=== PATIENT | female | born 1960 | race Caucasian/White ===

== ENCOUNTER → 2020-05-07 10:08 | Outpatient (CLI) | payer BC, SELFPAY ==
--- NOTE | 2020-05-07 10:23 | RAD_ITS ---
INDICATION: LOW BACK PAIN EXAMINATION/TECHNIQUE: X-RAY - XR Spine Lumbar 2 or 3 Views COMPARISON: None. FINDINGS: VERTEBRAE: Preserved vertebral body height. No fracture. No spondylolisthesis. Preservation of the normal lumbar lordosis. Mild dextroscoliosis centered at L3. Mild disc space narrowing and osteophyte formation consistent with mild degenerative disc disease. Lumbarization of the S1 segment. DISCS: Mild disc space narrowing INCLUDED ABDOMEN: Status post cholecystectomy. RAD/Lumbar Spine 2 or 3 Views IMPRESSION: Mild dextro scoliosis with mild diffuse degenerative disc disease. Electronically Signed: Ronald Reyna MD at 11:31 EDT Tel , Service support ,
== END ==
PROVIDERS: PCP Nurse Practitioner Family; Referring Provider Nurse Practitioner Family; Visit Provider Nurse Practitioner Family
DX: M54.5 Low back pain (principal)
CPT/HCPCS: 72100

== ENCOUNTER → 2020-07-12 08:13 | Outpatient (CLI) | payer BC, SELFPAY ==
--- NOTE | 2020-07-12 08:15 | BI_ITS ---
MAMMOGRAPHY - BILATERAL SCREENING REASON FOR EXAM: Female, 60 years old. Routine annual screening examination. PERTINENT HISTORY: Non-contributory. Remote left stereotactic breast biopsy. TECHNIQUE: Digital bilateral breast monse (3D mammographic acquisition) in the CC and MLO projections. 2-D mediolateral oblique (MLO) and craniocaudad (CC) views of both breasts were obtained. CAD: Full Field Digital Mammography with Computer Added Detection was performed. COMPARISON: Comparison is made with prior outside examination dated 01/27/2019. FINDINGS: Breast Composition: The breasts are heterogeneously dense, which may obscure small masses. There are no dominant masses or suspicious calcifications. No other significant abnormalities are identified. There has been no significant change since the prior study. BI/SCRN MAMM (CAD)W/MONSE BILAT IMPRESSION: Stable bilateral screening mammogram. Yearly follow-up mammogram recommended. (A) ASSESSMENT CATEGORY: BIRADS Category 1: Negative. A letter regarding these results will be sent to the patient by the facility within 30 days. Approximately 10% of breast cancers are not detected by mammography. A normal mammogram should not delay biopsy of a clinically suspicious abnormality. [id number] Electronically Signed: Abran Callahan MD at 9:43 EDT , Service support ,
== END ==
PROVIDERS: PCP Family Medicine; Referring Provider Nurse Practitioner Family; Visit Provider Nurse Practitioner Family
DX: Z12.31 Encounter for screening mammogram for malignant neoplasm of breast (principal)
CPT/HCPCS: 77063; 77067

== ENCOUNTER → 2021-10-06 | Outpatient (CLI) | payer BC, SELFPAY ==
--- NOTE | 2021-10-06 07:55 | BI_ITS ---
MAMMOGRAPHY - BILATERAL SCREENING REASON FOR EXAM: Female, 61 years old. Routine annual screening examination. PERTINENT HISTORY: Non-contributory. Remote left stereotactic breast biopsy. TECHNIQUE: Digital bilateral breast monse (3D mammographic acquisition) in the CC and MLO projections. 2-D mediolateral oblique (MLO) and craniocaudad (CC) views of both breasts were obtained. CAD: Full Field Digital Mammography with Computer Added Detection was performed. COMPARISON: Comparison is made with prior study dated 07/12/2020 and 09/17/2015. FINDINGS: Breast Composition: The breasts are heterogeneously dense, which may obscure small masses. There are no dominant masses or suspicious calcifications. A tissue clip marker is seen in the upper slightly lateral aspect of the left breast. No other significant abnormalities are identified. There has been no significant change since the prior study. BI/SCRN MAMM (CAD)W/MONSE BILAT IMPRESSION: Stable bilateral screening mammogram. Yearly follow-up mammogram recommended. (A) ASSESSMENT CATEGORY: BIRADS Category 2: Benign. A letter regarding these results will be sent to the patient by the facility within 30 days. Approximately 10% of breast cancers are not detected by mammography. A normal mammogram should not delay biopsy of a clinically suspicious abnormality. [id number] Electronically Signed: Abran Callahan MD at 9:39 EDT ,
== END | disposition home or self-care (01) ==
LOC: OPBI 07:53
PROVIDERS: PCP Nurse Practitioner Family; Visit Provider Nurse Practitioner Family
DX: Z12.31 Encounter for screening mammogram for malignant neoplasm of breast (principal)
CPT/HCPCS: 77063; 77067

== ENCOUNTER → 2022-03-15 | Outpatient (CLI) | payer BC, SELFPAY ==
--- NOTE | 2022-03-15 09:45 | STEWCON_ITS ---
Reason For Study: CHEST PAIN Stress Results Protocol: Kush Protocol WITH DEFINITY Maximum Predicted HR: 158 bpm Target HR: 134 bpm % Maximum Predicted HR: 99 % DurationHeart Rate Stage (mm:ss) (bpm) BP Comment BASELINE 73 142/863 CC DEFINITY FOR ENTIRE TEST STAGE 1 3:00 109 158/74 STAGE 2 3:00 131 170/62 STAGE 3 3:00 157 182/80 RECOVERY 93 142/78 Stress Duration: 9:00 mm:ss Maximum Stress HR: 157 bpm METS: 10 Baseline Echocardiogram Findings Stress Echo Wall motion Data Resting WM Intermediate WM Stress WM Resting Wall Motion Wall Motion Stress All segments Normal. All segments Hyperkinetic. Ejection Fraction 55 %. Ejection Fraction 75 %. Stress Results Heart rate response: Technically adequate: Percent predicted maximal heart rate greater than 85% Blood pressure response: Resting hypertension-appropriate response Rhythm: Rare PVC during exercise Functional capacity: Good Stopped secondary to dyspnea. EKG Data Baseline ECG: Normal sinus rhythm; poor R wave progression. Peak exercise ECG: No obvious ECG changes. Symptoms with Stress No complaint of chest discomfort during exercise or recovery. Doppler Measurements & Calculations TR max osito: 218.6 cm/sec TR max P.1 mmHg ECHO/Stress Test Echo W/Contrast Interpretation Summary 1. Contrast injection performed 2. Negative (technically adequate: Percent predicted maximal heart rate greater than 85%) stress echocardiogram 3. Negative (technically adequate: Percent predicted maximal heart rate greater than 85%) stress ECG Ordering Physician: Radha De La Cruz Performed By: Darcie Harper, DALE, RVT
== END | disposition home or self-care (01) ==
PROVIDERS: PCP Nurse Practitioner Family; Visit Provider Nurse Practitioner Family
DX: R07.89 Other chest pain (principal); M79.621 Pain in right upper arm; M79.622 Pain in left upper arm; R29.898 Other symptoms and signs involving the musculoskeletal system; Z82.49 Family history of ischemic heart disease and other diseases of the circulatory system
CPT/HCPCS: 93017; 93350; Q9957; A4216; C8928

== ENCOUNTER → 2022-08-10 | Outpatient (CLI) | payer OTHER, SELFPAY | END | disposition home or self-care (01) | LOC: LABSPEC 15:54 | PROVIDERS: PCP Nurse Practitioner Family; Referring Provider Physician Assistant Surgical; Visit Provider Physician Assistant Surgical | DX: R35.0 Frequency of micturition (principal) | CPT/HCPCS: 87086 ==

== ENCOUNTER → 2023-06-08 | Outpatient (CLI) | payer OTHER, SELFPAY ==
[2023-06-08 12:15] LABS: Absolute Lymphocyte Count 1.85 X10^3/uL (0.83-4.51); Absolute Neutrophil Count 5.1 X10^3/uL (2.0-7.7); Basophil# 0.04 X10^3/uL; Basophil% 0.5 % (0-1); Eosinophil# 0.37 X10^3/uL; Eosinophils% 4.7 % (0-5); Hematocrit 45.1 % (37-47); Hemoglobin 14.4 g/dL (12.0-15.0); Lymphocyte # 1.85 X10^3/ul (0.83-4.51); Lymphocyte % 23.4 % (19-41); Mean Corp Hgb Conc 31.9 g/dL (32-36); Mean Corpuscular Hgb 30.6 pg (27.0-32.0); Mean Platelet Vol. 10.6 fl (6.2-12.0); Monocyte# 0.56 X10^3/uL; Monocyte% 7.1 % (0-10); NRBC Flagged by Analyzer 0 % (0-5); Neutrophil # 5.07 X10^3/uL (2.7-7.7); Platelet Count 363 K/mm3 (150-450); RBC Distribution Width CV 13.1 % (11.6-14.6); RBC Distribution Width SD 46.7 fl (35.1-43.9); White Blood Count 7.9 K/mm3 (4.4-11.0)
[2023-06-08 12:30] LABS: ALB/GLOB Ratio 0.8 RATIO (0.9-2.4); AST(SGOT) 45 U/L (15-37); Alanine Aminotransfer ALT/SGPT 75 U/L (13-56); Albumin, Serum 3.5 g/dL (3.2-5.0); Alkaline Phosphatase 125 U/L (45-117); Anion Gap 4 (5-15); BUN 10 mg/dL (7-18); BUN/Creat Ratio 13.9 RATIO (10-20); Calcium,Total 9.3 mg/dL (8.5-10.1); Chloride 107 mmol/L (98-107); Cholesterol 221 mg/dL (200); Creatinine, Serum 0.72 mg/dL (0.55-1.02); EST Glomerular Filtration Rate 87 mL/min (>60); Est Glom Filt Rate - Afr Amer 105 mL/min (>60); Globulin 4.5 g/dL (2.2-4.2); Glucose 106 mg/dL (74-106); High Density Lipoprotein 78 mg/dL; Potassium 4.4 mmol/L (3.5-5.1); Sodium Level 139 mmol/L (136-145); Triglycerides 91 mg/dL; Very Low Density Lipoprotein 18 mg/dL (5-40)
== END | disposition home or self-care (01) ==
LOC: BIMLAB 10:39
PROVIDERS: PCP Internal Medicine; Referring Provider Internal Medicine; Visit Provider Internal Medicine
DX: Z00.00 Encounter for general adult medical examination without abnormal findings (principal)
CPT/HCPCS: 36415; 80053; 80061; 85025

== ENCOUNTER → 2023-07-12 | Outpatient (CLI) | payer OTHER, SELFPAY ==
--- NOTE | 2023-07-12 09:58 | BI_ITS ---
MAMMOGRAPHY - BILATERAL SCREENING 3-D TOMOSYNTHESIS REASON FOR EXAM: Female, 63 years old. Breast cancer screening PERTINENT HISTORY: No significant family history. TECHNIQUE: 2-D mammograms and 3-D Tomosynthesis of the breast (s) were performed. CAD was performed. COMPARISON: 10/06/2021 FINDINGS: The breast composition is heterogeneously dense that can obscure small breast masses. Scattered benign calcifications are seen. No dense spiculated masses or suspicious microcalcifications are identified. No architectural distortion is identified. There is no skin thickening or retraction. There has been no significant change since the prior study. BI/SCRN MAMM (CAD)W/MONSE BILAT IMPRESSION: No mammographic signs of malignancy. Routine yearly mammograms recommended. ASSESSMENT CATEGORY: BIRADS Category 1: Negative. A letter regarding these results will be sent to the patient by the facility within 30 days. FOLLOW UP RECOMMENDATION: Yearly follow up mammogram recommended. (A) Approximately 10% of breast cancers are not detected by mammography. A normal mammogram should not delay biopsy of a clinically suspicious abnormality. Electronically Signed: Ronald Reyna MD at 17:22 EDT ,
--- NOTE | 2023-07-12 10:05 | BD_ITS ---
STUDY: DUAL ENERGY X-RAY ABSORPTIOMETRY / DXA REASON FOR EXAM: Female, 63 years old. Post Menopausal TECHNIQUE: Bone Mineral Density (BMD) measurements of lumbar spine and bilateral hips were obtained. COMPARISON: None. FINDINGS: Lumbar Spine (L1-L4): g/cm2 (0.962) / T-score (-1.3) / Z-score (0.5) Findings are suggestive of osteopenia with a low fracture risk. Left Femur Total: g/cm2 (0.995) / T-score (0.4) / Z-score (1.6) Left Femoral Neck: g/cm2 (0.719) / T-score (-1.2) / Z-score (0.3) Right Femur Total: g/cm2 (0.965) / T-score (0.2) / Z-score (1.4) Right Femoral Neck: g/cm2 (0.656) / T-score (-1.7) / Z-score (-0.3) BD/Dexa Bone Density Study IMPRESSION: The patient is considered osteopenic as outlined below according to World Shaw Organization (WHO) criteria with a moderate fracture risk. Reference Information: The T-score is the number of standard deviations above or below the standard which is normal for young adults at their peak bone mineral density. The World Health Organization (WHO) interprets the T-scores as follows: Above -1 Normal bone density Between -1 and -2.5 Osteopenia Equal to / or below -2.5 Osteoporosis As a practical clinical guideline, osteopenia may be graded as follows: Mild -1 through -1.5 Moderate -1.6 through -2.0 Severe -2.1 through -2.4 The Z-score is the number of standard deviations above or below age-matched controls. A Z-score of less than -1.5 would be considered abnormal. References: 1. NIH Osteoporosis and Related Bone Diseases www osteo.org 2. International Society for Clinical Densitometry www iscd.org 3. National Osteoporosis Foundation www nof.org Electronically Signed: Abran Callahan MD at 11:13 EDT ,
== END | disposition home or self-care (01) ==
LOC: OPBD 09:56
PROVIDERS: PCP Internal Medicine; Referring Provider Internal Medicine; Visit Provider Internal Medicine
DX: Z12.31 Encounter for screening mammogram for malignant neoplasm of breast (principal); Z78.0 Asymptomatic menopausal state
CPT/HCPCS: 77063; 77067; 77080

== ENCOUNTER → 2023-10-08 | Outpatient (CLI) | payer OTHER, SELFPAY ==
[2023-10-16 16:10] LABS: HPV APTIMA, High Risk Negative (Negative)
== END | disposition home or self-care (01) ==
LOC: LABSPEC 11:53
PROVIDERS: PCP Internal Medicine; Referring Provider Nurse Practitioner Family; Visit Provider Nurse Practitioner Family
DX: Z12.4 Encounter for screening for malignant neoplasm of cervix (principal)
CPT/HCPCS: 87624; 88175; G0145

== ENCOUNTER → 2024-03-27 | Outpatient (CLI) | payer OTHER, SELFPAY | END | disposition home or self-care (01) | LOC: LABSPEC 10:03 | PROVIDERS: PCP Internal Medicine; Visit Provider Internal Medicine | DX: R82.90 Unspecified abnormal findings in urine (principal) | CPT/HCPCS: 87086; 87088; 87186 ==

== ENCOUNTER → 2024-07-03 | Outpatient (CLI) | payer MEDICARE, OTHER, SELFPAY ==
[2024-07-03 17:07] LABS: Absolute Lymphocyte Count 2.12 X10^3/uL (0.83-4.51); Absolute Neutrophil Count 5.2 X10^3/uL (2.0-7.7); Basophil# 0.07 X10^3/uL; Basophil% 0.8 % (0-1); Eosinophil# 0.33 X10^3/uL; Hematocrit 41.3 % (37-47); Hemoglobin 13.6 g/dL (12.0-15.0); Lymphocyte # 2.12 X10^3/ul (0.83-4.51); Lymphocyte % 25.5 % (19-41); Mean Corp Hgb Conc 32.9 g/dL (32-36); Mean Corpuscular Hgb 31.2 pg (27.0-32.0); Mean Corpuscular Volume 94.7 fL (81-99); Mean Platelet Vol. 10.8 fl (6.2-12.0); Monocyte# 0.59 X10^3/uL; Monocyte% 7.1 % (0-10); NRBC Flagged by Analyzer 0 % (0-5); Neutrophil % 62.4 % (47-70); Platelet Count 359 K/mm3 (150-450); RBC Distribution Width CV 12.9 % (11.6-14.6); RBC Distribution Width SD 44.7 fl (35.1-43.9); Red Blood Count 4.36 M/mm3 (4.2-5.4); White Blood Count 8.3 K/mm3 (4.4-11.0)
[2024-07-03 17:16] LABS: ALB/GLOB Ratio 1.3 RATIO (0.9-2.4); AST(SGOT) 43 U/L (<=31); Alanine Aminotransfer ALT/SGPT 54 U/L (<=34); Albumin, Serum 4.2 g/dL (3.4-4.8); Alkaline Phosphatase 111 U/L (35-104); Anion Gap 11 (5-15); BUN 11 mg/dL (4-19); BUN/Creat Ratio 16.8 RATIO (10-20); Carbon Dioxide 24.3 mmol/L (21.0-32.0); Chloride 102 mmol/L (98-108); Cholesterol 199 mg/dL (<=200); Creatinine, Serum 0.68 mg/dL (0.70-1.20); EST Glomerular Filtration Rate 97 (>60); Globulin 3.2 g/dL (2.2-4.2); Glucose 101 mg/dL (70-99); High Density Lipoprotein 67 mg/dL; Low Density Lipoprotein Calc. 109 mg/dL; Potassium 4.2 mmol/L (3.3-5.1); Protein, Total 7.5 g/dL (5.9-8.4); Sodium Level 138 mmol/L (133-145); Total Bilirubin 0.45 mg/dL (0.00-1.30); Triglycerides 115 mg/dL; Very Low Density Lipoprotein 23 mg/dL (5-40); cholesterol:hdl ratio screen 2.97
== END | disposition home or self-care (01) ==
LOC: BIMLAB 15:12
PROVIDERS: PCP Internal Medicine; Referring Provider Internal Medicine; Visit Provider Internal Medicine
DX: Z00.00 Encounter for general adult medical examination without abnormal findings (principal)
CPT/HCPCS: 36415; 80053; 80061; 85025

== ENCOUNTER → 2024-07-22 | Outpatient (CLI) | payer MEDICARE, OTHER, SELFPAY ==
--- NOTE | 2024-07-22 07:17 | US_ITS ---
PROCEDURE: ABD LIMITED W/ ELASTOGRAPHY REASON FOR EXAM: ELEVATED LIVER ENZYMES COMPARISON: None. TECHNIQUE: Right upper quadrant abdominal ultrasound along with shear wave elastography for non-invasive assessment of liver tissue stiffness. FINDINGS: LIVER: SIZE: Unremarkable LENGTH: 18.4 cm sagittally. ECHOTEXTURE: Normal. CONTOUR: Normal LESIONS: None identified BLOOD FLOW: Hepatopetal. ELASTOGRAPHY: EQI Med: 8.1 kPa EQI Med Rik: 1.63 m/s GALLBLADDER: Surgically absent. COMMON BILE DUCT: 1.1 cm. . PANCREAS: Normal RIGHT KIDNEY: Size measures 11.1 x 5.4 x 4.5 cm. Cortex measures 1.5 cm. US/ABD Limited w/ Elastography IMPRESSION: 1. F 2 to F 3, moderate to severe clinical likelihood of significant hepatic f ibrosis. 2. Status post cholecystectomy. Reference Values: SRU <1.37 m/s (5.7kPa): No to mild fibrosis 1.37 m/s - 2.2 m/s: Moderate to severe fibrosis >2.2 m/s (15kPa): Significant fibrosis / cirrhosis METAVIR Score F2 or higher: 1.34 m/s (5.7kPa) F3 or higher: 1.55 m/s (7.3kPa) F4: 1.80 m/s (10kPa) Reading Location: [place] [id number]
--- OUTSIDE RECORDS SUMMARY | 2024-07-22 07:33 | XMS RPT_ITS | CCD ---
Author Organization [facility] Care Team Providers Care Director Of Institutional Research Name Role Phone Jose Cruz Tabatha Sena Primary Care Provider Jono PARTS CHASER, PARTS CHASER-C Radha Primary Care Provider [phone] Dr. Andrew Trammell Attending Provider Jono PARTS CHASER, PARTS CHASER-C Radha Primary Care Provider [phone] Jono PARTS CHASER, PARTS CHASER-C Radha Referring Provider PEGGY Stevens Attending Provider Jono PARTS CHASER, PARTS CHASER-C Radha Primary Care Provider [phone] Jono PARTS CHASER, PARTS CHASER-C Radha Referring Provider Dr. Matthew Solorio Attending Provider [phone] Osmin KENT, Dr. Castro Primary Care Provider Dr. Matthew Solorio MD Referring Provider Yury Stevens Attending Provider [phone] Osmin KENT, Dr. Castro Attending Provider Kim Pemberton Referring Unavailable Oleghe, Efewongbe Primary Care Unavailable Kim Pemberton Attending Unavailable Oleghe, Efewongbe Attending Unavailable Oleghe, Efewongbe Primary Care Unavailable Oleghe, Efewongbe Attending Unavailable Oleghe, Efewongbe Referring Unavailable Oleghe, Efewongbe Primary Care Unavailable Oleghe, Efewongbe Attending Unavailable Oleghe, Efewongbe Referring Unavailable Oleghe, Efewongbe Primary Care Unavailable Oleghe, Efewongbe Attending Unavailable Oleghe, Efewongbe Primary Care Unavailable Oleghe, Efewongbe Referring Unavailable Kim Pemberton Attending Unavailable Oleghe, Efewongbe Referring Unavailable Oleghe, Efewongbe Primary Care Unavailable Oleghe, Efewongbe Referring Unavailable Oleghe, Efewongbe Primary Care Unavailable Yury Stevens Attending Unavailable Oleghe, Efewongbe Attending Unavailable Oleghe, Efewongbe Referring Unavailable Oleghe, Efewongbe Primary Care Unavailable Allergies Allergy Classification Reported Allergen(s) Allergy Type Date of Onset Reaction(s) Facility (1 source) Amoxicillin Drug Allergy 6 [facility] (1 source) Erythromycin Drug Allergy 6 [facility] (8 sources) Penicillins; Translations: [Penicillins] Propensity to adverse reactions [address] [facility] Medications Current Medications Medication Drug Class(es) Dates Sig (Normalized) Sig (Original) Calcium Amino Acid Chelate 200 mg calcium tablet (2 sources) Start: 07-03-2024 Calcium Amino Acid Chelate 200 mg calcium tablet Active mg PO July 03, 2024 12:00am cholecalciferol 0.05 mg oral capsule (3 sources) Vitamin D Start: 06-08-2023 take 1 capsule by mouth once daily Cholecalciferol (Vitamin D3) 50 mcg (2,000 unit) capsule Active 50 ug PO DAILY June 08, 2023 12:00am Cranberry Fruit (3 sources) Non-Standardized Food Allergenic Extract, Non-Standardized Plant Allergenic Extract Start: 06-08-2023 take 1 capsule by mouth once daily Cranberry Fruit 400 mg capsule Active 400 mg PO DAILY June 08, 2023 12:00am administer with a meal Start: 06-08-2023 take 400 mg by mouth once kathia y Cranberry Active 400 MG PO DAILY June 08, 2023 12:00am administer with a meal Completed/Discontinued Medications Medication Drug Class(es) Dates Sig (Normalized) Sig (Original) mecobalamin 1 mg chewable tablet (3 sources) Start: 06-08-2023 End: 07-03-2024 take 1 tablet by mouth once daily Mecobalamin (Vitamin B12) 1,000 mcg tablet,chewable Discontinued 1000 ug PO DAILY June 08, 2023 12:00am July 03, 2024 2:34pm nitrofurantoin, macrocrystals 25 mg / nitrofurantoin, monohydrate 75 mg oral capsule (8 sources) Nitrofuran Antibacterial Start: 03-27-2024 End: 04-03-2024 take 1 capsule by mouth every twelve hours at mealtime Nitrofurantoin Monohyd/M-Cryst 100 mg capsule Discontinued 1 NMA PO Q12H 14 7 March 27, 2024 1:00am April 02, 2024 1:00am April 03, 2024 1:11am administer with a meal/food; swallow whole; do not open, crush, dissolve , or chew Start: 07-07-2023 End: 07-12-2023 take 1 capsule by mouth every twelve hours at mealtime Nitrofurantoin Monohyd/M-Cryst (Macrobid) 100 mg capsule Discontinued 100 mg PO Q12H 10 5 July 07, 2023 12:00am July 11, 2023 12:00am July 12, 2023 12:05am must administer with a meal/food Start: 08-10-2022 End: 08-17-2022 take 1 capsule by mouth every twelve hours at mealtime Nitrofurantoin Monohyd/M-Cryst 100 mg capsule Discontinued 1 NMA PO Q12H 14 7 August 10, 2022 12:00am August 16, 2022 12:00am August 17, 2022 12:11am administer with a meal/food; swallow whole; do not open, crush, dissolve , or chew Problems Active Problems Problem Classification Problem Date Documented Date Episodic/Chronic Administrative/social admission (4 sources) Patient encounter status; Translations: [Persons encountering health services in other specified circumstances] 06-08-2023 Episodic Other liver diseases (3 sources) Elevated liver enzymes level; Translations: [Abnormal levels of other serum enzymes] 06-08-2023 Episodic Other liver diseases (1 source) Abnormal levels of other serum enzymes; Translations: [Abnormal levels of other serum enzymes] Onset: 07-17-2024 Episodic Other skin disorders (6 sources) Nail deformity; Translations: [Other nail disorders] 08-06-2020 Episodic Unclassified (2 sources) For resuscitation 07-03-2024 Past or Other Problems Problem Classification Problem Date Documented Da te Episodic/Chronic Genitourinary symptoms and ill-defined conditions (2 sources) Unspecified abnormal findings in urine; Translations: [Dysuria] Onset: 03-27-2024 Episodic Other screening for suspected conditions (not mental disorders or infectious disease) (6 sources) Mammography abnormal; Translations: [Patient encounter status] Onset: 06-21-2005 06-21-2005 Episodic Urinary tract infections (4 sources) Urinary tract infection, site not specified; Translations: [Urinary tract infection, site not specified] Onset: 03-27-2024 08-10-2022 Episodic Results Test Name Value Interpretation Reference Range Facility Absolute lymphocyte countOrd ered By: Matthew Solorio on 07-03-2024 Lymphocytes Auto (Unsp spec) [#/Vol] 2.12 10*3/uL 0.83-4.51 [facility] Absolute neutrophil countOrd ered By: Matthew Solorio on 07-03-2024 Neutrophils (Bld) [#/Vol] 5.2 10*3/uL 2.0-7.7 [facility] Anion gap in Serum or Plasma Ordered By: Matthew Solorio on 07-03-2024 Anion gap [Moles/Vol] 11 mmol/L 07-03 [facility] Automated lymphocyte count a s percentage of total leukocytesOrdered By: antionettesagolalayla Solorio on 07-03-2024 Lymphocytes/100 WBC Auto (Unsp spec) 25.5 % - [facility] BUN/creatinine ratioOrdered By: antionettesagolalayla Solorio on 07-03-2024 Urea nitrogen/Creatinine [Mass ratio] 16.8 mg/mg 10-20 [facility] Basophil percentageOrdered B y: Matthew Solorio on 07-03-2024 Basophils/100 WBC (Bld) 0.8 % 0-1 [facility] Bilirubin, totalOrdered By: antionettesagolalayla Solorio on 07-03-2024 Bilirubin [Mass/Vol] 0.45 mg/dL 0.00-1.30 [facility] CBC W/Diff, Automatedon 06-19 Absolute Lymph 2.12 X10 3/uL Normal 0.83-4.51 [facility] Comment on above: Performed By: #### L 500.4050, L100.0100, L500.4100 #### [facility] [address] [place], [address] Absolute Neut 5.2 X10 3/uL Normal 2.0-7.7 [facility] Comment on above: Performed By: #### L 500.4050, L100.0100, L500.4100 #### [facility] [address] [place], [address] Basophils/100 WBC (Bld) 0.8 % Normal 0-1 [facility] Comment on above: Performed By: #### L 500.4050, L100.0100, L500.4100 #### [facility] [address] [place], [address] Eosinophils/100 WBC (Bld) 4.0 % Normal 0-5 [facility] Comment on above: Performed By: #### L 500.4050, L100.0100, L500.4100 #### [facility] [address] [place], [address] Erythrocyte distribution width (RBC) [Ratio] 12.9 % Normal 11.6-14.6 [facility] Comment on above: Performed By: #### L 500.4050, L100.0100, L500.4100 #### [facility] [address] [place], [address] Hematocrit (Bld) [Volume fraction] 41.3 % Normal 37-47 [facility] Comment on above: Performed By: #### L 500.4050, L100.0100, L500.4100 #### [facility] [address] [place], [address] Hemoglobin (Bld) [Mass/Vol] 13.6 g/dL Normal 12.0-15.0 [facility] Comment on above: Performed By: #### L 500.4050, L100.0100, L500.4100 #### [facility] [address] [place], [address] IG% 0.200 Normal 0.0-0.9 [facility] Comment on above: Result Comment: IG% - Immature Granulocytes (promyelocytes, myelocytes and metamyelocytes) > 1% indicates that a LEFT SHIFT is Present. Performed By: #### L 500.4050, L100.0100, L500.4100 #### [facility] [address] [place], [address] Lymphocytes/100 WBC (Bld) 25.5 % Normal 19-41 [facility] Comment on above: Performed By: #### L 500.4050, L100.0100, L500.4100 #### [facility] [address] [place], [address] MCH (RBC) [Entitic mass] 31.2 pg Normal 27.0-32.0 [facility] Comment on above: Performed By: #### L 500.4050, L100.0100, L500.4100 #### [facility] [address] [place], [address] MCHC (RBC) [Mass/Vol] 32.9 g/dL Normal 32-36 [facility] Comment on above: Performed By: #### L 500.4050, L100.0100, L500.4100 #### [facility] [address] [place], [address] MCV (RBC) [Entitic vol] 94.7 fL Normal 81-99 [facility] Comment on above: Performed By: #### L 500.4050, L100.0100, L500.4100 #### [facility] [address] [place], [address] Monocytes/100 WBC (Bld) 7.1 % Normal 0-10 [facility] Comment on above: Performed By: #### L 500.4050, L100.0100, L500.4100 #### [facility] [address] [place], [address] Neutrophils/100 WBC (Bld) 62.4 % Normal 47-70 [facility] Comment on above: Performed By: #### L 500.4050, L100.0100, L500.4100 #### [facility] [address] [place], [address] Nucleated RBC (Bld) [#/Vol] 0 10*3/uL Normal 0-5 [facility] Comment on above: Performed By: #### L 500.4050, L100.0100, L500.4100 #### [facility] [address] [place], [address] Platelet mean volume (Bld) [Entitic vol] 10.8 fL Normal 6.2-12.0 [facility] Comment on above: Performed By: #### L 500.4050, L100.0100, L500.4100 #### [facility] [address] [place], [address] Platelets (Bld) [#/Vol] 359 10*3/uL Normal 150-450 [facility] Comment on above: Performed By: #### L 500.4050, L100.0100, L500.4100 #### [facility] [address] [place], [address] RBC (Bld) [#/Vol] 4.36 10*6/uL Normal 4.2-5.4 [facility] Comment on above: Performed By: #### L 500.4050, L100.0100, L500.4100 #### [facility] [address] [place], [address] RDW SD 44.7 fl High 35.1-43.9 [facility] Comment on above: Performed By: #### L 500.4050, L100.0100, L500.4100 #### [facility] [address] [place], [address] WBC (Bld) [#/Vol] 8.3 10*3/uL Normal 4.4-11.0 [facility] Comment on above: Performed By: #### L 500.4050, L100.0100, L500.4100 #### [facility] [address] [place], [address] Calculated very low density lipoprotein (VLDL) cholesterol measurementOrdered By: Matthew Solorio on 07-03-2024 Calculated very low density lipoprotein (VLDL) cholesterol measurement 23 mg/dL 5-40 [facility] Carbon dioxide, total [Moles /volume] in Central venous bloodOrdered By: Matthew Solorio on 07-03-2024 CO2 [Moles/Vol] 24.3 mmol/L 21.0-32.0 [facility] Chloride assayOrdered By: Abby Solorio on 07-03-2024 Chloride [Moles/Vol] 102 mmol/L 98-108 [facility] Comprehensive Metabolic Prof ilon 07-03-2024 Albumin [Mass/Vol] 4.2 g/dL Normal 3.4-4.8 [facility] Comment on above: Performed By: #### L 500.4050, L100.0100, L500.4100 #### [facility] [address] [place], [address] Albumin/Globulin [Mass ratio] 1.3 {ratio} Normal 0.9-2.4 [facility] Comment on above: Performed By: #### L 500.4050, L100.0100, L500.4100 #### [facility] [address] [place], [address] ALK PHOS 111 U/L High 35-104 [facility] Comment on above: Performed By: #### L 500.4050, L100.0100, L500.4100 #### [facility] [address] [place], [address] ALT [Catalytic activity/Vol] 54 U/L High <=34 [facility] Comment on above: Performed By: #### L 500.4050, L100.0100, L500.4100 #### [facility] [address] [place], [address] AST [Catalytic activity/Vol] 43 U/L High <=31 [facility] Comment on above: Performed By: #### L 500.4050, L100.0100, L500.4100 #### [facility] [address] [place], [address] Bilirubin [Mass/Vol] 0.45 mg/dL Normal 0.00-1.30 [facility] Comment on above: Performed By: #### L 500.4050, L100.0100, L500.4100 #### [facility] [address] [place], [address] BUN/CRE 16.8 RATIO Normal 10-20 [facility] Comment on above: Performed By: #### L 500.4050, L100.0100, L500.4100 #### [facility] [address] [place], [address] Calcium [Mass/Vol] 10.0 mg/dL Normal 7.6-11.0 [facility] Comment on above: Performed By: #### L 500.4050, L100.0100, L500.4100 #### [facility] [address] [place], [address] Chloride [Moles/Vol] 102 mmol/L Normal 98-108 [facility] Comment on above: Performed By: #### L 500.4050, L100.0100, L500.4100 #### [facility] [address] [place], [address] CO2 [Moles/Vol] 24.3 mmol/L Normal 21.0-32.0 [facility] Comment on above: Performed By: #### L 500.4050, L100.0100, L500.4100 #### [facility] [address] [place], [address] Creatinine [Mass/Vol] 0.68 mg/dL Low 0.70-1.20 [facility] Comment on above: Performed By: #### L 500.4050, L100.0100, L500.4100 #### [facility] [address] [place], [address] GAP 11 Normal 5-15 [facility] Comment on above: Performed By: #### L 500.4050, L100.0100, L500.4100 #### [facility] [address] [place], [address] GFR/1.73 sq M.predicted among non-blacks MDRD (S/P/Bld) [Vol rate/Area] 97 mL/min/{1.73_m2} Normal >60 [facility] Comment on above: Result Comment: mL/m in/1.73m2 CKD-EPI Creatinine Equation (2020) Performed By: #### L 500.4050, L100.0100, L500.4100 #### [facility] [address] [place], [address] Globulin (S) [Mass/Vol] 3.2 g/dL Normal 2.2-4.2 [facility] Comment on above: Performed By: #### L 500.4050, L100.0100, L500.4100 #### [facility] [address] [place], [address] Glucose [Mass/Vol] 101 mg/dL High 70-99 [facility] Comment on above: Performed By: #### L 500.4050, L100.0100, L500.4100 #### [facility] [address] [place], [address] Potassium [Moles/Vol] 4.2 mmol/L Normal 3.3-5.1 [facility] Comment on above: Performed By: #### L 500.4050, L100.0100, L500.4100 #### [facility] [address] [place], [address] Sodium [Moles/Vol] 138 mmol/L Normal 133-145 [facility] Comment on above: Performed By: #### L 500.4050, L100.0100, L500.4100 #### [facility] [address] [place], [address] T PROT 7.5 g/dL Normal 5.9-8.4 [facility] Comment on above: Performed By: #### L 500.4050, L100.0100, L500.4100 #### [facility] [address] [place], [address] Urea nitrogen [Mass/Vol] 11 mg/dL Normal 4-19 [facility] Comment on above: Performed By: #### L 500.4050, L100.0100, L500.4100 #### [facility] [address] [place], [address] Eosinophil percentageOrdered By: Matthew Solorio on 07-03-2024 Eosinophils/100 WBC (Bld) 4.0 % 0-5 [facility] Erythrocyte distribution wid th ratioOrdered By: Matthew Solorio on 07-03-2024 Erythrocyte distribution width (RBC) [Ratio] 12.9 % 11.6-14.6 [facility] Erythrocyte distribution wid th standard deviationOrdered By: Matthew Solorio on 07-03-2024 Erythrocyte distribution width (RBC) [Ratio] 44.7 fl High 35.1-43.9 [facility] Glomerular filtration rate ( GFR) estimation/1.73 sq m using serum, plasma, or whole bOrdered By: Matthew Solorio on 07-03-2024 GFR/1.73 sq M.predicted among non-blacks MDRD (S/P/Bld) [Vol rate/Area] 97 mL/min/{1.73_m2} >60 [facility] Comment on above: mL/min/1.73m2 CKD-EP I Creatinine Equation (2020) Hematocrit Auto (Bld) [Volum e fraction]Ordered By: Matthew Solorio on 07-03-2024 Hematocrit (Bld) [Volume fraction] 41.3 % 37-47 [facility] Hemoglobin measurementOrdere d By: Matthew Solorio on 07-03-2024 Hemoglobin (Bld) [Mass/Vol] 13.6 g/dL 12.0-15.0 [facility] Immature granulocytes/100 WB C Auto (Bld)Ordered By: Matthew Solorio on 07-03-2024 Immature granulocytes/100 WBC (Bld) 0.200 % 0.0-0.9 [facility] Comment on above: IG% - Immature Granu locytes (promyelocytes, myelocytes and metamyelocytes) > 1% indicates that a LEFT SHIFT is Present. Internal Medicine Office Vis ananya 07-03-2024 Internal Medicine Office Visit [facility] [address] [place] [address] [place] [address] OFFICE VISIT Date of Service: 07/03/24 MR#: [id number] Acct: [id number] Name: AMBER CASTILLO Rep #: [id number] : 1960 Provider: Dr. Matthew zamorano MD Age/Sex: 64/F Location[place] [facility] Status: Signed Intake Vital Signs 10/08/23 09:03 07/03/24 14:38 Height 5 ft 3 in 5 ft 3 in Weight: 211 lb BMI 37.3 BP 120/80 Blood Pressure Location Lt brachial Position Sitting Respiration 16 Pulse 68 Pulse Source Monitor Temp 97.3 F L Temp Source Temporal Pulse Oximetry (%) 97 Oxygen Delivery Method room air Intake Visit Reasons: wellness Chief Complaint: Wellness/yearly Director Of Global Marketing Required: No Is patient in pain?: No Allergies Penicillins Allergy (Unknown, Verified 03/27/24 09:47) unknown Medications ???Medication ???Instructions ???Recorded ???Confirmed ???Type cholecalciferol (vitamin D3) 50 50 mcg PO DAILY 06/08/23 07/03/24 History mcg (2,000 unit) capsule cranberry fruit 400 mg capsule 400 mg PO DAILY 06/08/23 07/03/24 History calcium amino acid chelate mg PO 07/03/24 07/03/24 History Have you fallen in the past year?: No PFSH Medical History (Updated 07/03/24 @ 16:[address] Matthew Solorio MD) Encounter for wellness examination Advance directive indicates patient wish for full code resuscitation status Elevated liver enzymes Encounter to establish care Colon cancer screening Preventative health care Pancreatitis Gallstones Breast lump Urinary tract infection Arthritis Anemia Surgical History H/O breast biopsy Hx of cholecystectomy Family History Mother Angina at rest Diabetes Heart disease Hypertension High cholesterol Father Arthritis Melanoma Mental disorder Sister Arthritis Diabetes Heart disease Hypertension High cholesterol Social History (Updated 07/03/24 @ 14:37 by Keiko Dai MA) adopted: No household members: spouse and children housing: house number of children: 2 current occupational status: retired pets and animals: No sexually active: Yes Smoking Status: Never smoker alcohol intake: current alcohol intake frequency: 0-2 drinks per day Alcohol type: beer and wine details: 2-3 daily substance use type: does not use caffeine: Yes (24oz) Type: carbonated beverages what type of physical activity do you participate in: walking frequency: 3-4 times per week seatbelt use: always do you feel safe at home: Yes additional social history: - [employer] Female Reproductive History Menstrual Date of menopause: 02/19/07 HPI HPI Chief Complaint: Wellness/yearly Details: AMBER CASTILLO, is a 64 F who presents to the office today for wellness/yearly. No acute concerns at this time. No significant changes since her last visit. Since her visit, she states that she has been doing yoga at least 3 times a week. Tries to stay active. Did have a colonoscopy, mammogram and Pap smear. Was also seen by dermatology. No concerns with sleep reported. Feels well. No significant family history changes since her last visit. ROS Const Constitutional: No body ache, chills, excessive sweating, fatigue, fever(s), frequent falls, headache(s), snoring, weakness, sleep problems or change in appetite Eyes Eyes: No blurry vision, change in vision, bulging eyes, floaters, visual disturbances, eye pain or Light sensitivity ENT ENT: No abnormal hearing, ear or mastoid pain, tinnitus, balance problems, nosebleed/epistaxis, nasal congestion, headache(s), neck pain or sore throat Resp Respiratory: No cough, excessive phlegm production, pain on inspiration, shortness of breath, snoring or wheezing Cardio Cardiology: No chest pain at rest, chest pain with exertion, excessive sweating, shortness of breath, dyspnea on exertion, lightheadedness, orthopnea or palpitations Gastro GI: No abdominal pain, change in bowel habits, constipation, cramping, diarrhea, nausea/dyspepsia or vomiting Genitourinary-Female : No burning urination, painful urination, urinary incontinence, urinary frequency, suprapubic fullness, side pain, abnormal vaginal bleeding or pelvic pain Musc Musculoskeletal: No abnormal gait, joint pain, back pain, limited range of motion, neck pain or numbness Skin Skin: No dry skin, redness, excessive hair growth, yellowing of the eye, lesions, itchy eyes, rash or wounds Neuro Neurology: No abnormal gait, abnormal hearing, behavioral changes, unsteady gait/balance, weakness, frequent falls, headache(s), memory loss, numbness or visual disturbances Psych Psychiatric: No anxiety, No behavioral (more content not included)... Normal [facility] LDL calc ser/plasOrdered By: Matthew Solorio on 07-03-2024 Cholesterol in LDL [Mass/Vol] 109 mg/dL [facility] Comment on above: Jrepmoiqvv=427-173 m g/dL & Higher Ziit=360 mg/dL or greater Laboratory - Chemistry and C hemistry - challengeOrdered By: Matthew Solorio on 07-03-2024 AST [Catalytic activity/Vol] 43 U/L High <32 [facility] Lipid Profileon 07-03-2024 CHOL:HDL 2.97 Normal [facility] Comment on above: Performed By: #### L 500.4050, L100.0100, L500.4100 #### [facility] [address] [place], [address] Cholesterol [Mass/Vol] 199 mg/dL Normal <=200 [facility] Comment on above: Result Comment: Chol esterol level, Desirable <200 mg/dL Borderline high cholesterol 200-239 mg/dL High cholesterol >=240 mg/dL Recommendations of the NCEP Adult Treatment Panel for the following risk-cutoff thresholds for the [place] population. Performed By: #### L 500.4050, L100.0100, L500.4100 #### [facility] [address] [place], [address] Cholesterol in HDL [Mass/Vol] 67 mg/dL Normal [facility] Comment on above: Result Comment: Leah onal Cholesterol Education Program (NCEP) guidelines: <40 mg/dL: Low HDL-cholesterol (major risk factor for CHD) >= 60 mg/dL: High HDL-cholesterol (negative risk factor for CHD) HDL-cholesterol is affected by a number of factors, e.g. smoking, exercise, hormones, sex and age. Performed By: #### L 500.4050, L100.0100, L500.4100 #### [facility] [address] [place], [address] Cholesterol in LDL [Mass/Vol] 109 mg/dL Normal [facility] Comment on above: Result Comment: Bord tvlrfh=868-726 mg/dL Higher Rnyk=031 mg/dL or greater Performed By: #### L 500.4050, L100.0100, L500.4100 #### [facility] [address] [place], [address] Cholesterol in VLDL [Mass/Vol] 23 mg/dL Normal 5-40 [facility] Comment on above: Performed By: #### L 500.4050, L100.0100, L500.4100 #### [facility] [address] [place], [address] Triglyceride [Mass/Vol] 115 mg/dL Normal [facility] Comment on above: Result Comment: The drugs N-Acetylcysteine and Metamizole may falsely depress this assay. Normal range: <150 mg/dL Borderline High: 150-199 mg/dL High: 200-499 mg/dL Very High: >500 mg/dL Performed By: #### L 500.4050, L100.0100, L500.4100 #### [facility] [address] [place], [place], [id number] MCV (mean corpuscular volume ) determinationOrdered By: Matthew Solorio on 07-03-2024 MCV (RBC) [Entitic vol] 94.7 fL 81-99 [facility] Mean corpuscular hemoglobin (MCH) determinationOrdered By: Matthew Solorio on 07-03-2024 MCH (RBC) [Entitic mass] 31.2 pg 27.0-32.0 [facility] Mean corpuscular hemoglobin concentration (MCHC) determinationOrdered By: Matthew Solorio on 07-03-2024 MCHC (RBC) [Mass/Vol] 32.9 g/dL 32-36 [facility] Mean platelet volume determi nationOrdered By: Matthew Solorio on 07-03-2024 Platelet mean volume (Bld) [Entitic vol] 10.8 fL 6.2-12.0 [facility] Monocyte percentageOrdered B y: Matthew Solorio on 07-03-2024 Monocytes/100 WBC (Bld) 7.1 % 0-10 [facility] Neutrophil percentageOrdered By: Efcatherine Bondse on 07-03-2024 Neutrophils/100 WBC (Bld) 62.4 % 47-70 [facility] Nucleated red blood cell per centageOrdered By: Matthew Solorio on 07-03-2024 Nucleated RBC/100 WBC (Bld) [Ratio] 0 % 0-5 [facility] Platelet countOrdered By: Abby Solorio on 07-03-2024 Platelets (Bld) [#/Vol] 359 10*3/uL 150-450 [facility] Potassium measurement (mass/ volume)Ordered By: Matthew Solorio on 07-03-2024 Potassium (Unsp spec) [Mass/Vol] 4.2 mmol/L 3.3-5.1 [facility] RBC Auto (Bld) [#/Vol]Ordere d By: Matthew Solorio on 07-03-2024 RBC (Bld) [#/Vol] 4.36 10*6/uL 4.2-5.4 [facility] Screening total cholesterol/ high density lipoprotein (HDL) cholesterol ratioOrdered By: Matthew Solorio on 07-03-2024 Cholesterol.total/Choles terol in HDL [Mass ratio] 2.97 {ratio} [facility] Serum creatinine measurement (mass/volume)Ordered By: Matthew Solorio on 07-03-2024 Creatinine [Mass/Vol] 0.68 mg/dL Low 0.70-1.20 [facility] Serum globulin measurementOr dered By: Matthew Solorio on 07-03-2024 Globulin (S) [Mass/Vol] 3.2 g/dL 2.2-4.2 [facility] Serum glucose measurement (m ass/volume)Ordered By: Matthew Solorio on 07-03-2024 Glucose [Mass/Vol] 101 mg/dL High 70-99 [facility] Serum or plasma alanine cummings otransferase (ALT) measurementOrdered By: Matthew Solorio on 07-03-2024 ALT [Catalytic activity/Vol] 54 U/L High <35 [facility] Serum or plasma albumin samantha urement (mass/volume)Ordered By: Matthew Solorio on 07-03-2024 Albumin [Mass/Vol] 4.2 g/dL 3.4-4.8 [facility] Serum or plasma albumin/glob ulin mass ratioOrdered By: Matthew Solorio on 07-03-2024 Albumin/Globulin [Mass ratio] 1.3 {ratio} 0.9-2.4 [facility] Serum or plasma alkaline barbra sphatase measurementOrdered By: Matthew Solorio on 07-03-2024 ALP [Catalytic activity/Vol] 111 U/L High 35-104 [facility] Serum or plasma calcium samantha urement (mass/volume)Ordered By: Matthew Solorio on 07-03-2024 Calcium [Mass/Vol] 10.0 mg/dL 7.6-11.0 [facility] Serum or plasma cholesterol in HDL measurement (mass/volume)Ordered By: Matthew Solorio on 07-03-2024 Cholesterol in HDL [Mass/Vol] 67 mg/dL >40 [facility] Comment on above: National Cholesterol Education Program (NCEP) guidelines:<40 mg/dL: Low HDL-cholesterol (major risk factor for CHD)>= 60 mg/dL: High HDL-cholesterol (negative risk factor for CHD)HDL-cholesterol is affected by a number of factors, e.g. smoking, exercise, hormones, sex and age. Serum or plasma cholesterol measurement (mass/volume)Ordered By: Matthew Solorio on 07-03-2024 Cholesterol [Mass/Vol] 199 mg/dL <201 [facility] Comment on above: Cholesterol level, D esirable <200 mg/dLBorderline high cholesterol 200-239 mg/dLHigh cholesterol >=240 mg/dLRecommendations of the NCEP Adult Treatment Panel for the following risk-cutoff thresholds for the [place] population. Serum or plasma urea nitroge n measurement (mass/volume)Ordered By: Matthew Solorio 07-03-2024 Urea nitrogen [Mass/Vol] 11 mg/dL 4-19 [facility] Sodium levelOrdered By: Javy Solorio 07-03-2024 Sodium [Moles/Vol] 138 mmol/L 133-145 [facility] Total proteinOrdered By: Daniel Solorio on 07-03-2024 Protein [Mass/Vol] 7.5 g/dL 5.9-8.4 [facility] Triglycerides measurementOrd ered By: Matthew Solorio 07-03-2024 Triglyceride [Mass/Vol] 115 mg/dL <199 [facility] Comment on above: The drugs N-Acetylcy steine and Metamizole may falsely depress this assay. Normal range: <150 mg/dLBorderline High: 150-199 mg/dLHigh: 200-499 mg/dLVery High: >500 mg/dL White blood cell (WBC) count Ordered By: Matthew Solorio on 07-03-2024 WBC (Bld) [#/Vol] 8.3 10*3/uL 4.4-11.0 [facility] Urine Cultureon 03-29-2024 [facility]RC Presumptive E. coli [place] Count >100,000 Presumptive E. coli: REACTION Ampicillin Islt CANDELARIA 8 Ampicillin+Sulbac Islt CANDELARIA <=2 S Cefepime Islt CANDELARIA <=0.12 S cefTRIAXone Islt CANDELARIA <=0.25 S Ciprofloxacin Islt CANDELARIA <=0.06 S B-Lactamase Extended Susc Islt NEG Gentamicin Islt CANDELARIA <=1 S levoFLOXacin Islt CANDELARIA <=0.12 S Meropenem Islt CANDELARIA <=0.25 S Nitrofurantoin Islt CANDELARIA <=16 S Pip+Tazo Islt CANDELARIA <=4 S TMP SMX Islt CANDELARIA <=20 S Normal [facility] Comment on above: Performed By: #### M 100.8468 #### [facility] [address], [place], [id number] Laboratory - Chemistry and C hemistry - challengeOrdered By: Yury Rojas on 03-27-2024 Bilirubin Ql (U) Negative [facility] Glucose Ql (U) Negative [facility] Ketones Ql (U) Negative [facility] pH (U) 7.5 [pH] [facility] Specific gravity (U) [Rel density] 1.020 [facility] Urobilinogen (U) [Mass/Vol] Negative [facility] Laboratory - Hematology and Cell countsOrdered By: Yury Rojas on 03-27-2024 Hemoglobin Ql (U) Negative [facility] - Specimen inform ationOrdered By: Yury Rojas on 03-27-2024 Clarity (U) Cloudy [facility] Color (U) Yellow [facility] Laboratory - UrinalysisOrder ed By: Yury Rojas on 03-27-2024 Nitrite Ql (U) Positive [facility] Protein Ql (U) 2+ [facility] No Panel InformationOrdered By: Yury Rojas on 03-27-2024 Urine Leukocytes Positive [facility] Urine Non-Hemolyzed Blood Large [facility] Urgent Care Visit Reporton 0 03-27-2024 Urgent Care Visit Report [facility] [address], [address] [place] [address] OFFICE VISIT Date of Service: 03/27/24 MR#: [id number] Acct: [id number] Name: AMBER CASTILLO Rep #: [id number] : 1960 Provider: PEGGY Brownlee Age/Sex: 63/F Location[facility] Status: Signed Intake Vital Signs 10/08/23 09:03 03/27/24 09:46 Height 5 ft 3 in BP 124/60 H Blood Pressure Location Lt brachial Position Sitting Respiration 16 Pulse 77 Pulse Source NIBP Temp 97.9 F Temp Source Oral Pulse Oximetry (%) 98 Oxygen Delivery Method room air Intake Visit Reasons: Urinary tract infection Chief Complaint: dysuria, urgency, low back pain Director Of Global Marketing Required: No Is patient in pain?: No Allergies Penicillins Allergy (Unknown, Verified 03/27/24 09:47) unknown Is last menstrual period known: No Post menopausal: Yes Patient : No Have you fallen in the past year?: No Nurse's Note: dysuria, urgency, low back pain x 24 hours. denies abd pain, fevers. concern for UTI PFSH Medical History Elevated liver enzymes Encounter to establish care Colon cancer screening Preventative health care Pancreatitis Gallstones Breast lump Urinary tract infection Arthritis Anemia Surgical History H/O breast biopsy Hx of cholecystectomy Family History Mother Angina at rest Diabetes Heart disease Hypertension High cholesterol Father Arthritis Melanoma Mental disorder Sister Arthritis Diabetes Heart disease Hypertension High cholesterol Social History (Updated 10/08/23 @ 09:00 by Shellie Jameson) household members: spouse and children housing: house current occupational status: employed 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 Patient states that started yesterday. No fever, chills, sweats. No nausea, vomiting or diarrhea. No loss of bowel or bladder control. No other associated symptoms or alleviating/aggravat ing factors. ROS Const Constitutional: No other (6 system ROS completed with pertinent findings in the HPI otherwise normal.) Exam Const General: cooperative and healthy appearing Resp Effort Inspection: normal respiratory effort Auscultation: Bilateral: Clear to Auscultation Cardio Rate: regular rate Rhythm: regular rhythm GI Auscultation: normal bowel sounds General: No CVA tenderness Psych Appearance: grossly normal Mental Status: mental status grossly normal Results POC Urinalysis Dip (Clinic) Office Urine Color Yellow Last Edit by Norma Driver on 03/27/24 09:52 Office Urine Clarity Cloudy Last Edit by Norma Driver on 03/27/24 09:52 Office Urine Glucose Negative Last Edit by Norma Driver on 03/27/24 09:52 Office Urine Ketones Negative Last Edit by Norma Driver on 03/27/24 09:52 Off Ur Spec Bryant 1.020 Last Edit by Norma Driver on 03/27/24 09:52 Office Urine pH 7.5 Last Edit by Norma Driver on 03/27/24 09:52 Office Urine Bilirubin Negative Last Edit by Norma Driver on 03/27/24 09:52 Office Urine Urobilinogen Negative Last Edit by Norma Driver on 03/27/24 09:52 Office Urine Blood Negative Last Edit by Norma Driver on 03/27/24 09:52 Office Urine Blood Hemolyzed Large Last Edit by Norma Driver on 03/27/24 09:52 Office Urine Protein 2+ Last Edit by Norma Driver on 03/27/24 09:52 Office Urine Nitrate Positive Last Edit by Norma Driver on 03/27/24 09:52 Off Ur Leukocytes Positive Last Edit by Norma Driver on 03/27/24 09:52 Coding Level of Care Code Off vis,new,level 3 Diagnoses Urinary tract infection N39.0 Assessment and Plan Assessment and Plan (1) Urinary tract infection: Plan: Macrobid as prescribed today. Encouraged to get plenty of rest, drink lots of clear liquids, and use Tylenol or Ibuprofen (unless contraindicated) for fever and comfort. Patient also educated on other symptomatic management techniques. To be seen in 7-10 days if no improvement; sooner if worsening of symptoms. Patient advised of (more content not included)... Normal [facility] Urine cultureOrdered By: Alphonso Rojas on 03-27-2024 Bacteria identified Cx Nom (U) Presumptive E. coli Abnormal [facility] PAP IG HPV APTIMA 16/18,45on 10-16-2023 ADEQ Comment Normal . [facility] Comment on above: Order Comment: Speci men Comment: [id number] Specimen Comment: Source.............Cervix Specimen Comment: Other..............Post Menopausal Specimen Comment: No. of containers..01 ThinPrep Vial Result Comment: Sati sfactory for evaluation. Endocervical and/or squamous metaplastic cells (endocervical component) are present. Performed By: #### L 7400.0280 #### [facility] [place], [address] COMM . Normal . [facility] Comment on above: Order Comment: Speci men Comment: [id number] Specimen Comment: Source.............Cervix Specimen Comment: Other..............Post Menopausal Specimen Comment: No. of containers..01 ThinPrep Vial Performed By: #### L 7400.0280 #### [facility] [address] [place], [address] COMMENT Comment Normal . [facility] Comment on above: Order Comment: Speci men Comment: [id number] Specimen Comment: Source.............Cervix Specimen Comment: Other..............Post Menopausal Specimen Comment: No. of containers..01 ThinPrep Vial Result Comment: This liquid based ThinPrep(R) pap test was screened with the use of an image guided system. Performed By: #### L 7400.0280 #### [facility] [address] [place], [place], [id number] DIAG Comment Normal . [facility] Comment on above: Order Comment: Speci men Comment: [id number] Specimen Comment: Source.............Cervix Specimen Comment: Other..............Post Menopausal Specimen Comment: No. of containers..01 ThinPrep Vial Result Comment: NEGA TIVE FOR INTRAEPITHELIAL LESION OR MALIGNANCY. REACTIVE CELLULAR CHANGES AND/OR REPAIR ARE PRESENT. Performed By: #### L 7400.0280 #### [facility] [address] [place], [address] HPV APTIMA, HR Negative Normal Negative [facility] Comment on above: Order Comment: Speci men Comment: [id number] Specimen Comment: Source.............Cervix Specimen Comment: Other..............Post Menopausal Specimen Comment: No. of containers..01 ThinPrep Vial Result Comment: This nucleic acid amplification test detects fourteen high- risk HPV types (16,18,31,33,35,39,45,51,52,56,58,59,66,68) without differentiation. Performed By: #### L 7400.0280 #### [facility] [address] [place], [address] HPV Ariam Rfx Comment Normal . [facility] Comment on above: Order Comment: Speci men Comment: [id number] Specimen Comment: Source.............Cervix Specimen Comment: Other..............Post Menopausal Specimen Comment: No. of containers..01 ThinPrep Vial Result Comment: Crit desi not met, HPV Genotype not performed. Performed at: - [facility] [id number] Medical Practice Assistant: Rochelle Means MD, Phone: [phone] Performed at: = - [facility] [id number] Medical Practice Assistant: Rochelle Means MD, Phone: [phone] Performed By: #### L 7400.0280 #### [facility] [address] [place], [address] PAPSMR Comment Normal . [facility] Comment on above: Order Comment: Speci men Comment: [id number] Specimen Comment: Source.............Cervix Specimen Comment: Other..............Post Menopausal Specimen Comment: No. of containers..01 ThinPrep Vial Result Comment: The Pap smear is a screening test designed to aid in the detection of premalignant and malignant conditions of the uterine cervix. It is not a diagnostic procedure and should not be used as the sole means of detecting cervical cancer. Both false-positive and false-negative reports do occur. Performed By: #### L 7400.0280 #### [facility] [address] [place], [place], [id number] PERFORM Comment Normal . [facility] Comment on above: Order Comment: Speci men Comment: [id number] Specimen Comment: Source.............Cervix Specimen Comment: Other..............Post Menopausal Specimen Comment: No. of containers..01 ThinPrep Vial Result Comment: Shelby Almazan, Swimming Pool Attendant (ASCP) Performed By: #### L 7400.0280 #### [facility] [address] [place], [address] SIGN Comment Normal . [facility] Comment on above: Order Comment: Speci men Comment: [id number] Specimen Comment: Source.............Cervix Specimen Comment: Other..............Post Menopausal Specimen Comment: No. of containers..01 ThinPrep Vial Result Comment: Radha Means MD, Pathologist Performed By: #### L 7400.0280 #### [facility] [address] [place], [place], [address] Foreign Exchange Student Coordinator Office Visit Reporton 10-08-2023 Foreign Exchange Student Coordinator Office Visit Report [facility] [address], [address] [place] [address] OFFICE VISIT Date of Service: 10/08/23 MR#: [id number] Acct: [id number] Name: AMBER CASTILLO FERMÍN Rep #: [id number] : 1960 Provider: JAZMIN Bonner Age/Sex: 63/F Location: [facility] Status: Signed Intake Vital Signs 07/07/23 12:27 10/08/23 08:52 10/08/23 09:03 Height 5 ft 3 in 5 ft 3 in 5 ft 3 in Weight: 206 lb 206 lb 6 oz BMI 36.5 36.5 BP 132/84 H 123/81 H Blood Pressure Location Lt brachial Position Sitting Respiration 14 Pulse 82 Pulse Source Monitor Temp 98.4 F Pulse Oximetry (%) 94 Oxygen Delivery Method room air 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) Chief 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: Annual Director Of Global Marketing Required: No Is patient in pain?: No Allergies Penicillins Allergy (Unknown, Verified 07/07/23 12:23) unknown Medications ???Medication ???Instructions ???Recorded ???Confirmed ???Type cholecalciferol (vitamin D3) 50 50 mcg PO DAILY 06/08/23 10/08/23 History mcg (2,000 unit) capsule cranberry 400 mg capsule 400 mg PO DAILY 06/08/23 10/08/23 History mecobalamin (vitamin B12) 1,000 1,000 mcg PO DAILY 06/08/23 10/08/23 History mcg chewable tablet Is last menstrual period known: No Post menopausal: Yes Date of menopause: 02/19/07 Patient : No : No PFSH Medical History Elevated liver enzymes Encounter to establish care Colon cancer screening Preventative health care Pancreatitis Gallstones Breast lump Urinary tract infection Arthritis Anemia Surgical History H/O breast biopsy Hx of cholecystectomy Family History Mother Angina at rest Diabetes Heart disease Hypertension High cholesterol Father Arthritis Melanoma Mental disorder Sister Arthritis Diabetes Heart disease Hypertension High cholesterol Social History (Updated 10/08/23 @ 09:00 by Shellie Jameson) household members: spouse and children housing: house current occupational status: employed 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 Date Name GA/Weeks Outcome Route Bth Weight Gen Labor Lgth Anesthesia Del Locatn Provider FOB Unknown Cindy Unknown Becki HPI Encounter for routine gynecological examination Details: AMBER CASTILLO is a 63 year old who presents for annual exam. She reports no issues or concerns. Last PAP: 01/2014; negative; She believes she had one in 2018; believes it was negative. History of abnormal PAP: none Last mammogram: 06/2023; normal. History of abnormal mammogram: Biopsy with markers; unsure which side. Colon cancer screenin08/2023; negative and return in 10 years. Other preventative health care screenings: Dexa: 07/12/2023; osteopenia. Dr. Solorio is PCP. Female Reproductive History Questions: sexually active: Yes, dyspareunia: No and PCB: No Date of menopause: 02/19/07 Menopausal Symptoms: No hot flashes, No night sweats, No weight change, No mood changes and No difficulty concentrating ROS Const Constitutional: Denies night sweats Eyes Eyes: Denies change in vision ENT ENT: Denies dizziness Resp Resp: Denies cough GI GI: Denies abdominal pain, constipation or nausea : Denies hot flashes, nipple discharge, pelvic pain, sexual dysfunction, vaginal discharge, vaginal dryness, vaginal odor or vaginal pruritus Skin Skin/Breast: Denies alopecia, rash, breast mass, breast pain, breast skin changes or nipple discharge Neuro Neuro: Denies dizziness Psych Psych: Denies difficulty concentrating Endo Endo: Denies cold intolerance, excessive sweating or heat intolerance Exam Const General: cooperative, healthy appearing, comfortable, no acute distress, well groomed and well hydrated Nutritional Appearance: well nourished Orientation: alert, awake and oriented x3 HENMT Head: normal to inspection and normocephalic Ears: hearing grossly normal bilaterally and external ears normal Nose: external nose normal Face and sinus: normal facial exam (more content not included)... Normal [facility] Absolute lymphocyte countOrd ered By: Matthew Solorio on 06-08-2023 Lymphocytes Auto (Unsp spec) [#/Vol] 1.85 10*3/uL 0.83-4.51 [facility] Automated lymphocyte count a s percentage of total leukocytesOrdered By: Matthew Solorio on 06-08-2023 Lymphocytes/100 WBC Auto (Unsp spec) 23.4 % 19-41 [facility] Basophil percentageOrdered B y: Matthew Solorio on 06-08-2023 Basophils/100 WBC (Bld) 0.5 % 0-1 [facility] Bilirubin [Mass/Vol] 0.60 mg/dL 0.20-1.00 [facility] Comment on above: For patients on eltr ombopag therapy, use of Dimension [place] TBIL is not recommended. Chloride [Moles/Vol] 107 mmol/L 98-107 [facility] Cholesterol [Mass/Vol] 221 mg/dL <200 [facility] Comment on above: <200 mg/dL Desirable 200-240 mg/dL Borderline >240 mg/dL High Risk Eosinophils/100 WBC (Bld) 4.7 % 0-5 [facility] Glucose [Mass/Vol] 106 mg/dL 74-106 [facility] Comment on above: Fasting Glucose resu lt from 100 to 125 mg/dL suggests IMPAIRED HOMEOSTASIS per A.D.A. criteria. Hemoglobin (Bld) [Mass/Vol] 14.4 g/dL 12.0-15.0 [facility] Monocytes/100 WBC (Bld) 7.1 % 0-10 [facility] Neutrophils (Bld) [#/Vol] 5.1 10*3/uL 2.0-7.7 [facility] Neutrophils/100 WBC (Bld) 64.0 % 47-70 [facility] Potassium [Moles/Vol] 4.4 mmol/L 3.5-5.1 [facility] Protein [Mass/Vol] 8.0 g/dL 6.4-8.2 [facility] Sodium [Moles/Vol] 139 mmol/L 136-145 [facility] Triglyceride [Mass/Vol] 91 mg/dL <199 [facility] [facility] Comment on above: The drugs N-Acetylcy steine and Metamizole may falsely depress this assay.Serum Triglycerides Reference Interval Normal <150 mg/dL Borderline high 150 - 199 mg/dL High 200 - 499 mg/dL Very High > or = 500 mg/dL WBC (Bld) [#/Vol] 7.9 10*3/uL 4.4-11.0 [facility] Determination of erythrocyte mean corpuscular volume (MCV)Ordered By: Matthew Solorio on 06-08-2023 MCV (RBC) [Entitic vol] 96.0 fL 81-99 [facility] Erythrocyte distribution wid th ratioOrdered By: Matthew Solorio on 06-08-2023 Erythrocyte distribution width (RBC) [Ratio] 13.1 % 11.6-14.6 [facility] Erythrocyte distribution wid th standard deviationOrdered By: catherine Solorio on 06-08-2023 Erythrocyte distribution width (RBC) [Entitic vol] 46.7 fL 35.1-43.9 [facility] Hematocrit Auto (Bld) [Volum e fraction]Ordered By: antionettesagolalayla Solorio on 06-08-2023 Hematocrit (Bld) [Volume fraction] 45.1 % 37-47 [facility] Immature granulocytes/100 WB C Auto (Bld)Ordered By: [facility] [place]min on 06-08-2023 Immature granulocytes/100 WBC (Bld) 0.300 % 0.0-0.9 [facility] Comment on above: IG% - Immature Granu locytes (promyelocytes, myelocytes and metamyelocytes) > 1% indicates that a LEFT SHIFT is Present. Laboratory - Chemistry and C hemistry - challengeOrdered By: [facility] Newn[facility]la Maciasalbino on 06-08-2023 Albumin/Globulin [Mass ratio] 0.8 {ratio} 0.9-2.4 [facility] ALP [Catalytic activity/Vol] 125 U/L 45-117 [facility] ALT [Catalytic activity/Vol] 75 U/L 13-56 [facility] Cholesterol in HDL [Mass/Vol] 78 mg/dL >40 [facility] Comment on above: The drugs N-Acetylcy steine and Metamizole may falsely depress this assay. Reference Range HDL <40 mg/dL Low HDL Cholesterol HDL >or= 60 mg/dL High HDL Cholesterol Cholesterol in LDL [Mass/Vol] 125 mg/dL 0-130 [facility] CO2 [Moles/Vol] 28.0 mmol/L 21.0-32.0 [facility] Globulin (S) [Mass/Vol] 4.5 g/dL 2.2-4.2 [facility] Urea nitrogen/Creatinine [Mass ratio] 13.9 mg/mg 10-20 [facility] Laboratory - Hematology and Cell countsOrdered By: antionettesagolalayla Solorio on 06-08-2023 MCH (RBC) [Entitic mass] 30.6 pg 27.0-32.0 [facility] MCHC (RBC) [Mass/Vol] 31.9 g/dL 32-36 [facility] Nucleated RBC/100 WBC (Bld) [Ratio] 0 % 0-5 [facility] Platelet mean volume (Bld) [Entitic vol] 10.6 fL 6.2-12.0 [facility] Platelets (Bld) [#/Vol] 363 10*3/uL 150-450 [facility] No Panel InformationOrdered By: Matthew Solorio on 06-08-2023 Estimated GFR (MDRD) Amer 105 mL/min >60 [facility] Comment on above: GFR Calc Estimated GFR (MDRD) Non-Af Amer 87 mL/min >60 [facility] Comment on above: Non- GFR Calc VLDL Cholesterol 18 mg/dL 5-40 [facility] RBC Auto (Bld) [#/Vol]Ordere d By: Matthew Solorio on 06-08-2023 RBC (Bld) [#/Vol] 4.70 10*6/uL 4.2-5.4 [facility] Serum or plasma calcium samantha urement (mass/volume)Ordered By: Matthew Solorio on 06-08-2023 Calcium [Mass/Vol] 9.3 mg/dL 8.5-10.1 [facility] Serum or plasma creatinine m easurement (mass/volume)Ordered By: Matthew Solorio on 06-08-2023 Creatinine [Mass/Vol] 0.72 mg/dL 0.55-1.02 [facility] Comment on above: The validity of the calculated GFR & GFRAA in patients over 70 years has not been determined. Clinical correlation is essential. Serum or plasma urea nitroge n measurement (mass/volume)Ordered By: Matthew Solorio on 06-08-2023 Urea nitrogen [Mass/Vol] 10 mg/dL 7-18 [facility] Thin prep Papanicolaou smear with manual screeningOrdered By: Matthew Solorio on 06-08-2023 Thin prep Papanicolaou smear with manual screening 3.5 g/dL 3.2-5.0 [facility] Thin prep Papanicolaou smear with manual screening 45 U/L 15-37 [facility] Thin prep Papanicolaou smear with manual screening 4 5-15 [facility] Laboratory - Chemistry and C hemistry - challengeon 08-10-2022 Bilirubin Ql (U) Negative [facility] Glucose Ql (U) Negative [facility] Ketones Ql (U) Negative [facility] pH (U) 6.5 [pH] [facility] Specific gravity (U) [Rel density] 1.005 [facility] Urobilinogen (U) [Mass/Vol] 0.5426317 mg/dL [facility] Laboratory - Hematology and Cell countson 08-10-2022 Hemoglobin Ql (U) Hemolyzed [facility] Laboratory - Specimen inform ationon 08-10-2022 Clarity (U) Clear [facility] Color (U) FLORECITA [facility] Laboratory - Urinalysison Nitrite Ql (U) Positive [facility] Protein Ql (U) Trace [facility] No Panel Informationon 08-10 Urine Leukocytes Positive [facility] Urine Non-Hemolyzed Blood Large [facility] Otheron 02-01-2010 CONVERTED CLINICAL HISTORY OPERATIVE PROCEDURE: Fractional D&C, video hysteroscopy CLINICAL INFORMATION: Post menopausal bleeding, cervical stenosis [facility] CONVERTED ELECTRONIC SIGNATURE BRENDA CASTRO M.D. (Electronic signature on file) Final Signed Out: 02/01/2010 16:02 [facility] CONVERTED FINAL DIAGNOSIS FINAL DIAGNOSIS: A) ENDOMETRIAL CURETTINGS - SCANT PROLIFERATIVE ENDOMETRIUM WITH OBSCURING CRUSH ARTIFACT. SCANT UNREMARKABLE ENDOCERVICAL MUCOSA. COMMENT: No hyperplastic or neoplastic process is identified. The specimen is partially obscured by crush artifact, however. B) ENDOCERVICAL CURETTINGS - SCANT UNREMARKABLE ENDOCERVICAL MUCOSA EMBEDDED IN MUCUS. SPECIMEN: (A) ENDOMETRIAL CURETTINGS (B) ENDOCERVICAL CURETTINGS [facility] CONVERTED ORDERING PROVIDER Ordering Provider: JACINTO OBRIEN [facility] Vital Signs Date Time Vital Sign Value Performing Clinician Christina santana 07-03-2024 14:38-0400 Body height 160.[address] Matthew Solorio MD Work Phone: [facility] 07-03-2024 14:38-0400 Body mass index (BMI) [Ratio] 37.3 kg/m2 Dr. Matthew Solorio MD Work Phone: [facility] 07-03-2024 14:38-0400 Body temperature 97.3 [degF] Dr. Matthew Solorio MD Work Phone: [facility] 07-03-2024 14:38-0400 Body weight 95.[address] Matthew Solorio MD Work Phone: [facility] 07-03-2024 14:38-0400 Diastolic blood pressure 80 mm[Hg] Dr. Matthew Solorio MD Work Phone: [facility] 07-03-2024 14:38-0400 Heart rate 68 /min Dr. Matthew Solorio MD Work Phone: [facility] 07-03-2024 14:38-0400 Respiratory rate 16 /min Dr. Matthew Solorio MD Work Phone: [facility] 07-03-2024 14:38-0400 SaO2% (BldA) [Mass fraction] 97 % Dr. Matthew Solorio MD Work Phone: [facility] 07-03-2024 14:38-0400 Systolic blood pressure 120 mm[Hg] Dr. Matthew Solorio MD Work Phone: [facility] 03-27-2024 09:46-0500 Body temperature 97.9 [degF] Dr. Matthew Solorio MD Work Phone: [facility] 03-27-2024 09:46-0500 Diastolic blood pressure 60 mm[Hg] Dr. Matthew Solorio MD Work Phone: [facility] 03-27-2024 09:46-0500 Heart rate 77 /min Dr. Matthew Solorio MD Work Phone: [facility] 03-27-2024 09:46-0500 Respiratory rate 16 /min Dr. Matthew Solorio MD Work Phone: [facility] 03-27-2024 09:46-0500 SaO2% (BldA) [Mass fraction] 98 % Dr. Matthew Solorio MD Work Phone: [facility] 03-27-2024 09:46-0500 Systolic blood pressure 124 mm[Hg] Dr. Matthew Solorio MD Work Phone: [facility] 06-08-2023 10:05-0400 Body height 160.02 cm [employer]C Radha De La Cruz [employer] CH[employer]ER Work Phone: [facility] 06-08-2023 10:05-0400 Body mass index (BMI) [Ratio] 36 kg/m2 [employer] Radha De La Cruz [employer] CH[employer]ER Work Phone: [facility] 06-08-2023 10:05-0400 Body temperature 97.2 [degF] [employer]C Radha De La Cruz [employer]S CH[employer]ER Work Phone: [facility] 06-08-2023 10:05-0400 Body weight 92.24 kg [employer]S CH[employer]-C Radha De La Cruz [employer]S CH[employer]ER Work Phone: [facility] 06-08-2023 10:05-0400 Diastolic blood pressure 76 mm[Hg] [employer] CH[employer]-C Radha De La Cruz [employer]S CH[employer]ER Work Phone: [facility] 06-08-2023 10:05-0400 Heart rate 71 /min [employer] Radha De La Cruz PARTS CH[employer]ER Work Phone: [facility] 06-08-2023 10:05-0400 Respiratory rate 16 /min [employer]C Radha De La Cruz PARTS CHASER Work Phone: [facility] 06-08-2023 10:05-0400 SaO2% (BldA) [Mass fraction] 97 % [employer] Radha De La Cruz [employer]S CH[employer]ER Work Phone: [facility] 06-08-2023 10:05-0400 Systolic blood pressure 122 mm[Hg] [employer]C Radha De La Cruz PARTS CH[employer]ER Work Phone: [facility] 08-10-2022 11:29-0400 Body height 160.02 cm [employer]S CH[employer]-C Radha De La Cruz [employer]S CH[employer]ER Work Phone: [facility] 08-10-2022 11:29-0400 Body mass index (BMI) [Ratio] 35.6 kg/m2 [employer] Radha De La Cruz [employer]S CH[employer]ER Work Phone: [facility] 08-10-2022 11:29-0400 Body temperature 97.3 [degF] [employer]C Radha De La Cruz PARTS CHASER Work Phone: [facility] 08-10-2022 11:29-0400 Body weight 91.17 kg PARTS CH[employer]ER-C Radha De La Cruz PARTS CHASER Work Phone: [facility] 08-10-2022 11:29-0400 Diastolic blood pressure 70 mm[Hg] [employer] CH[employer]ER-C Radha De La Cruz PARTS CHASER Work Phone: [facility] 08-10-2022 11:29-0400 Heart rate 74 /min [employer]C Radha De La Cruz PARTS CH[employer]ER Work Phone: [facility] 08-10-2022 11:29-0400 Respiratory rate 16 /min [employer] Radha De La Cruz PARTS CHASER Work Phone: [facility] 08-10-2022 11:29-0400 SaO2% (BldA) [Mass fraction] 96 % [employer]-C Radha Sellerssey PARTS CHASER Work Phone: [facility] 08-10-2022 11:29-0400 Systolic blood pressure 110 mm[Hg] [employer]ER-C Radha De La Cruz PARTS CHASER Work Phone: [facility] 02-01-2010 16:02-0500 Body mass index (BMI) [Ratio] Jacinto Obrien [facility] Encounters Encounter Date Encounter Type Care Provider Facility Start: 07-22-2024 ambulatory Matthew Simon ty:[facility] Start: 07-09-2024 Encounter for genera l adult medical examination without abnormal findings catherine Solorio [facility] Start: 07-03-[address] Albino Solorio MD Work Phone: [facility] Start: 07-03-2024 End: 07-03-[address] Matthew Solorio MD -[facility] Work Phone: Start: 07-03-2024 End: 07-03-[address] Matthew Solorio MD [facility] Start: 07-03-2024 End: 07-03-[address] Matthew Solorio MD Work Phone: [facility] Work Phone: Start: 07-03-2024 End: 07-03-2024 [facility] Start: 06-09-2024 ambulatory Javysagolalayla Solorio Facili ty:[facility] Start: 03-27-2024 End: 03-27-2024 Patient encounter procedure Yury Rojas [place] -[facility] Work Phone: Start: 03-27-2024 End: 03-27-2024 ambulatory [facility] Facility:[facility] Start: 03-27-2024 End: 03-27-2024 ambulatory [facility] Facility:[facility] Start: 10-08-2023 Encounter for gynecological examination (general) (routine) without abnormal findings [facility] Start: 10-08-2023 End: 10-08-2023 ambulatory [facility] Facility:[facility] Start: 10-08-2023 End: 10-08-2023 ambulatory [facility] Facility:[facility] Start: 06-08-2023 End: 06-08-2023 ambulatory [employer]C Radha De La Cruz [employer]S CH[employer]ER Work Phone: [facility] Work Phone: Start: 06-08-2023 Patient encounter status [employer] CH[employer]ER-C Radha De La Cruz PARTS CH[employer]ER Work Phone: [facility] Start: 06-08-2023 End: 06-08-2023 Encounter for general adult medical examination without abnormal findings PARTS CHASER-Franco De La Cruz [employer]S CHASER Work Phone: [facility] Start: 06-08-2023 End: 06-08-2023 Patient encounter procedure PARTS CHASER-C Radha De La Cruz PARTS CHASER Work Phone: [facility] Work Phone: Start: 08-10-2022 End: 08-10-2022 ambulatory [employer] CH[employer]-C Radha De La Cruz PARTS CH[employer]ER Work Phone: [facility] Work Phone: Start: 08-10-2022 End: 08-10-2022 Patient encounter procedure PARTS CHASER-C Radha De La Cruz PARTS CHASER Work Phone: [facility]-Laboratory, Specimen Start: 08-10-2022 End: 08-10-2022 Patient encounter procedure PARTS CHASER-C Radha De La Cruz PARTS CHASER Work Phone: [facility] Start: 03-22-2022 Registered Referred PARTS CHASER-C Shi De La Cruz PARTS CHASER Work Phone: [facility]-Cardiovascula r Services Start: 03-15-2022 Non-patient / Non-visit PARTS CH[employer]ER-C Ирина De La Cruz PARTS CHASER Work Phone: [facility] Start: 03-15-2022 End: 03-15-2022 ambulatory [employer] CH[employer]-C Radha De La Cruz PARTS CHASER Work Phone: [facility] Work Phone: Start: 03-15-2022 End: 03-15-2022 Patient encounter procedure PARTS CHASER-C Radha De La Cruz PARTS CHASER Work Phone: [facility] Start: 10-06-2021 End: 10-06-2021 ambulatory [facility] Work Phone: Start: 10-06-2021 End: 10-06-2021 Patient encounter procedure [facility]-Outpatient Breast Imaging Start: 01-29-2010 End: 01-29-2010 Patient encounter procedure Jacinto Obrien Work Phone: [facility] Start: 01-29-2010 Results Only Jacinto Obrien Work Phone: [facility] Procedures Date Procedure Procedure Detail Performing Clinician Start: 03-27-[address] Karthik Solorio MD Work Phone: Start: 10-06-2021 Screening mammography Start: 01-29-2010 CONVERTED SURGICAL PATHOLOGY Jacinto Obrien Work Phone: Bacteria identified in Urine by Culture [employer]S [employer]ER-[employer] Radha De La Cruz NP Work Phone: Plan of Treatment Date Care Activity Detail Author Start: 07-03-2024 CBC W Auto Differential panel - Blood [facility] Start: 07-03-2024 Comprehensive metabolic 2000 panel - Serum or Plasma [facility] Start: 07-03-2024 Lipid 1996 panel - Serum or Plasma [facility] Start: 06-08-2023 Patient referral [facility] Work Phone: Start: 10-21-2019 Influenza vaccination INFLUENZA (#1) [facility] Start: 06-01-2009 SHINGRIX VACCINE (1 of 2) SHINGRIX VACCINE (1 of 2) [facility] Start: 06-01-2009 Tuberculosis screening COLORECTAL CANCER SCREENING,SEE MODIFIER [facility] Start: 06-01-2004 DIABETES SCREEN DIABETES SCREEN [facility] Start: 06-01-2004 [address] L[address] SCREEN [facility] Start: [address] [facility] Start: 06-01-1989 HPV TEST[address] HPV TESTING [facility] Start: 06-01-1980 PAP TESTING PAP TESTING [facility] Start: 06-01-1978 Urine microalbumin profile DTAP,TDAP,TD (1 - Tdap) [facility] Start: 06-01-1977 HEPATITIS C SCREENING HEPATITIS C SCREENING [facility] Start: 06-01-1977 HIV SCRE[address] HIV SCREEN[address] [facility] Alanine aminotransfe rase [Enzymatic activity/volume] in Serum or Plasma [facility] Albumin [Mass/volume ] in Serum or Plasma [facility] Alkaline phosphatase [Enzymatic activity/volume] in Serum or Plasma [facility] Anion gap in Serum or Plasma [facility] Bilirubin, total measurement [facility] BUN/Creatinine ratio [facility] Calcium [Mass/volume ] in Serum or Plasma [facility] Carbon dioxide, tota l [Moles/volume] in Central venous blood [facility] Cholesterol [Mass/vo lume] in Serum or Plasma [facility] Cholesterol in HDL [Mass/volume] in Serum or Plasma [facility] Creatinine [Mass/vol ume] in Serum or Plasma [facility] DXA Bone [Mass/Area] Bone density [facility] Erythrocyte mean cor puscular volume determination [facility] Glucose [Mass/volume ] in Serum or Plasma [facility] Hematocrit [Volume F raction] of Blood [facility] Hemoglobin [Mass/vol ume] in Blood [facility] Leukocytes [#/volume ] in Blood [facility] Low density lipoprot ein cholesterol measurement [facility] Mean corpuscular hem oglobin concentration determination [facility] Mean corpuscular hem oglobin determination [facility] Measurement of renal function [facility] MG Breast - bilatera l Screening [facility] Neutrophil count [facility] Neutrophil percent differential count [facility] Patient referral [facility] Work Phone: Platelets [#/volume] in Blood [facility] Potassium measurement [facility] Red blood cell count [facility] Red cell distributio n width determination [facility] Serum chloride measurement [facility] Sodium measurement [facility] Total cholesterol:HD L ratio measurement [facility] Total protein measurement [facility] Triglycerides measurement [facility] Urea nitrogen [Mass/ volume] in Serum or Plasma [facility] VLDL cholesterol measurement [facility] Payers Date Payer Category Payer Medicare [id number] 2024 Unknown [id number] 2024 Private Health Insurance [id number] 2023 Self-pay [id number] 2023 Unknown [id number] 2004 Unknown [employer] PPO [id number] 2004-Present PPO [id number] Private Health Insurance [facility] [id number] Unknown [employer] [id number] Unknown [id number] Unknown [id number] 62 Unknown [id number] 62 Unknown [id number] 62 Unknown [id number] 62 Unknown [id number] 62 Unknown [id number] 62 Unknown [id number] Social History Date Type Detail Facility Start: 07-06-2005 End: 07-03-2024 Tobacco smoking status NHIS Never smoker [facility] Start: 07-06-2005 Alcohol intake Current drinke r of alcohol (finding) [facility] Sex Assigned At Not on file [facility] Start: 08-06-2020 End: 06-08-2023 Tobacco smoking status TNIS Unknown if ever smoked [facility] Start: 1960 Sex Assigned At Female [facility] Gender Identity Identifies as fe male gender (finding) [facility] Sexual Orientation Heterosexual (finding) [facility] Evaluation note 03-27-2024 Note Date & Type Note Facility 03-27-2024 Evaluation note Diagnosis Onset Date Resolution Urinary tract infection noneactive March 27 9:43am [facility] Work Phone: Evaluation note 03-27-2024 Note Date & Type Note Facility 03-27-2024 Evaluation note Diagnosis Onset Date Resolution Urinary tract infection noneactive F ebruary 2024 9:43am Advance directive indicates patient wish for full code resuscitation status acute July 03, 025 2:22pm Encounter for wellness examination acute July 03, 2024 2:22pm Preventative health care acute July 03, 2024 2:22pm [facility] Work Phone: Evaluation note Note Date & Type Note Facility Evaluation note No assessment information availa ble [facility] Work Phone: Evaluation note Note Date & Type Note Facility Evaluation note Diagnosis Onset Date Urinary tract infection none active [facility] Work Phone: Evaluation note Note Date & Type Note Facility Evaluation note Diagnosis Onset Date Colon cancer screening acute Encounter to establish care acute Preventative health care acu te [facility] Work Phone: Reason for referral (narrative) Note Date & Type Note Facility Reason for referral (narrative) No reason for referral information available [facility] Work Phone: Chief Complaint and Reason for Visit Chief Complaint SCREENING Chief Complaint CHEST PAIN Blood Flow Screening - [place] Chief Complaint Urinary tract infect ion Reason for Visit Urinary tract infect ion Chief Complaint ESTABLISH CARE, PPW SENT Reason for Visit Colon cancer screeni ng Encounter to establish care Preventative health care Chief Complaint Admit Date Urinary tract infection March 27 9:43am wellness July 03, 2024 2:22p m Reason for Visit Admit Date Urinary tract infection March 27 9:43am Reason for Visit Admit Date Urinary tract infection March 27 9:43am Advance directive indicates patient wish for full code resuscitation status July 03, 2024 2:22pm Encounter for wellness examination June 192024 2:22pm Preventative health care July 03, 2024 2:22pm Family History No Family History Records Found Relationship Condition Age at Onset Recorded Date/T jenelle Not Specified Diabetes mellitus Unknown Cardiac disease Unknown Relationship Condition Age at Onset Recorded Date/T jenelle mother Angina at rest Unknown Diabetes mellitus Unknown Cardiac disease Unknown Hypertension Unknown High blood cholesterol Unknown father Arthritis Unknown Malignant melanoma Unknown Mental disorder Unknown sister Arthritis Unknown Summary Purpose Advance Directives No Advanced Directives Records Found Additional Source Comments Source Comments (unrecognize d section and content) In the event this informatio n is protected by the Federal Confidentiality of Alcohol and Drug Abuse Patient Records regulations: The Federal rules restrict any use of the information to criminally investigate or prosecute any alcohol or drug abuse patient.[facility] Goals (unrecognized section and content) Goals may be documented in a n alternate sectionGoals may be documented in an alternate sectionGoals may be documented in an alternate sectionGoals may be documented in an alternate sectionGoals may be documented in an alternate sectionGoals may be documented in an alternate section Care Teams (unrecognized sec tion and content) Team Status: Active Member Role Status Dates Dr. Tabatha Billingsley MD Family Provider Active Radha De La Cruz NP, PARTS CHASER-C Primary Care Provider Active Team Status: Active Member Role Status Dates Radha De La Cruz NP, [employer]S CHASER-C Primary Care Provider Active Dr. Andrew Trammell MD Attending Provider Active Team Status: Inactive Member Role Status Dates Radha De La Cruz NP, PARTS CHASER-C Primary Care Provider, Attendin g Provider Active Team Status: Active Member Role Status Dates Radha De La Cruz NP, PARTS CHASER-C Primary Care Provider Active Dr. Vasile Vital MD Attending Provider Active Self Referred Referring Provider Active Team Status: Inactive Member Role Status Dates Radha De La Cruz NP, PARTS CHASER-C Primary Care Provider, Referrin g Provider Active PEGGY Zavala Attending Provider Active Team Status: Inactive Member Role Status Dates Radha De La Cruz NP, PARTS CHASER-C Primary Care Provider Active PEGGY Zavala Attending Provider, Referring Provi yani Active Team Status: Active Member Role Status Dates Dr. Tabatha Billingsley MD Family Provider Active Dr. Matthew Solorio MD Primary Care Provider Active Team Status: Inactive Member Role Status Dates Radha De La Cruz PARTS CHASER, [employer]S CHASER-C Primary Care Provider, Referrin g Provider Active Dr. Matthew Solorio MD Attending Provider Active Team Status: Inactive Member Role Status Dates Dr. Matthew Solorio MD Primary Care P robert, Attending Provider, Referring Provider Active Team Status: Inactive Member Role Status Dates Dr. Matthew Solorio MD Primary Care Provider Active Start: March 27, 2024 End: March 27, 2024 Dr. Matthew Solorio MD Referring Provider Active Start: March 27, 2024 End: March 27, 2024 Yury WOODS PA Attending Provider Active Sta rt: March 27, 2024 End: March 27, 2024 Team Status: Inactive Member Role Status Dates Dr. Matthew Solorio MD Primary Care Provider Active Start: March 27, 2024 End: March 27, 2024 Dr. Matthew Solorio MD Attending Provider Active Start: March 27, 2024 End: March 27, 2024 Team Status: Inactive Member Role Status Dates Dr. Matthew Solorio MD Primary Care Provider Active Start: July 03, 2024 End: July 03, 2024 Dr. Matthew Solorio MD Attending Provider Active Start: July 03, 2024 End: July 03, 2024 Dr. Matthew Solorio MD Referring Provider Active Start: July 03, 2024 End: July 03, 2024 Team Status: Active Member Role Status Dates Dr. Matthew Solorio MD Primary Care Provider Active Start: July 03, 2024 Dr. Matthew Solorio MD Attending Provider Active Start: July 03, 2024 Dr. Matthew Solorio MD Referring Provider Active Start: July 03, 2024 INFORMATION SOURCE (unrecogn ized section and content) DATE CREATED AUTHOR 07/19/2024 [facility] FOR RECORDS PERTAINING TO PATIENTS WHO ARE OR HAVE BEEN ENROLLED IN A CHEMICAL DEPENDENCY/SUBSTANCEABUSE PROGRAM, SOME INFORMATION MAY BE OMITTED. This clinical summary was aggregated from multiple sources. Caution should be exercised in using it in the provision of clinical care. This summary normalizes information from multiple sources, and as a consequence, information in this document may materially change the coding, format and clinical context of patient data. In addition, data may be omitted in some cases. CLINICAL DECISIONS SHOULD BE BASED ON THE PRIMARY CLINICAL RECORDS. [facility] [employer] [facility] provides no warranty or guarantee of the accuracy or completeness of information in this document.
== END | disposition home or self-care (01) ==
LOC: US 07:17
PROVIDERS: PCP Internal Medicine; Referring Provider Internal Medicine; Visit Provider Internal Medicine
DX: R74.8 Abnormal levels of other serum enzymes (principal)
CPT/HCPCS: 76705; 76981

== ENCOUNTER → 2024-08-14 | Outpatient (CLI) | payer MEDICARE, OTHER, SELFPAY ==
[2024-08-14 11:23] LABS: Prothrombin Time (Protime)PT. 13.7 SECONDS (11.7-14.9)
[2024-08-14 12:42] LABS: Hepatitis B Surface Antibody Nonreactive
[2024-08-14 12:46] LABS: AST(SGOT) 40 U/L (<=31); Alanine Aminotransfer ALT/SGPT 53 U/L (<=34); Albumin, Serum 4.2 g/dL (3.4-4.8); Alkaline Phosphatase 125 U/L (35-104); Bilirubin, Direct 0.14 mg/dL (0.00-0.30); Globulin 3.1 g/dL (2.2-4.2); Hepatitis B Surface Antigen Nonreactive (Nonreactive); Hepatitis C Antibody Nonreactive (Nonreactive); Protein, Total 7.3 g/dL (5.9-8.4)
[2024-08-15 06:08] LABS: Hepatitis A AB, Total Negative (Negative); Hepatitis B Core Ab Total Negative (Negative)
== END | disposition home or self-care (01) ==
PROVIDERS: PCP Internal Medicine; Referring Provider Nurse Practitioner Acute Care; Visit Provider Nurse Practitioner Acute Care
DX: K70.9 Alcoholic liver disease, unspecified (principal); K74.00 Hepatic fibrosis, unspecified; R74.8 Abnormal levels of other serum enzymes
CPT/HCPCS: 80076; 85610; 86704; 86706; 86708; 86803; 87340

== ENCOUNTER → 2024-09-18 | Outpatient (CLI) | payer MEDICARE, OTHER, SELFPAY ==
[2024-09-18 12:33] LABS: Hematocrit 43.6 % (37-47); Hemoglobin 14.1 g/dL (12.0-15.0); Immature Granulocytes Count 0.020 X10^3/uL (0.0-0.0); Mean Corp Hgb Conc 32.3 g/dL (32-36); Mean Corpuscular Volume 93.0 fL (81-99); Mean Platelet Vol. 11.3 fl (6.2-12.0); NRBC Flagged by Analyzer 0 % (0-5); Platelet Count 385 K/mm3 (150-450); RBC Distribution Width CV 12.3 % (11.6-14.6); RBC Distribution Width SD 42.4 fl (35.1-43.9); Red Blood Count 4.69 M/mm3 (4.2-5.4); White Blood Count 7.4 K/mm3 (4.4-11.0)
--- OUTSIDE RECORDS SUMMARY | 2024-09-18 12:35 | XMS RPT_ITS | CCD ---
Author Organization [facility] CliniSyin Care Team Providers Care Polymer Scientist Name Role Phone Tabatha Billingsley Primary Care Provider Jono [employer], [employer]-C Radha Primary Care Provider Dr. Andrew Trammell Attending Provider [phone] Jono [employer], [employer] Radha Primary Care Provider [phone] Jono [employer], [employer] Radha Referring Provider PEGGY Stevens Attending Provider [phone] De La Cruz [employer], [employer]-C Radha Primary Care Provider Jono [employer], [employer] Radha Referring Provider Dr. Matthew Solorio Attending Provider [phone] Osmin KENT, Dr. Castro Primary Care Provider Osmin KENT, Dr. Castro Referring Provider Yury Stevens Attending Provider Osmin KENT, Dr. Castro Attending Provider [phone] Dr. Matthew Solorio MD Primary Care Provider Dr. Matthew Solorio MD Attending Provider [phone] Dr. Matthew Solorio MD Referring Provider Naga DANIELS-CReanna Attending Provider Naga [employer]-CReanna Referring Provider Leighton Hylton MD Attending Provider Devan KENTDr. Segura Attending Provider Oleghe, Efewongbe Referring Unavailable Oleghe, Efewongbe Attending Unavailable Oleghe, Efewongbe Primary Care Unavailable Oleghe, Efewongbe Attending Unavailable Oleghe, Efewongbe Primary Care Unavailable Oleghe, Efewongbe Referring Unavailable Oleghe, Efewongbe Primary Care Unavailable Reanna Nielson Attending Unavailable Oleghe, Efewongbe Referring Unavailable Oleghe, Efewongbe Attending Unavailable Oleghe, Efewongbe Primary Care Unavailable Oleghe, Efewongbe Primary Care Unavailable Oleghe, Efewongbe Attending Unavailable Oleghe, Efewongbe Referring Unavailable Oleghe, Efewongbe Primary Care Unavailable Reanna Nielson Attending Unavailable Reanna Nielson Referring Unavailable Oleghe, Efewongbe Primary Care Unavailable Oleghe, Efewongbe Attending Unavailable Oleghe, Efewongbe Referring Unavailable Oleghe, Efewongbe Primary Care Unavailable Kim Pemberton Attending Unavailable BarkKim dewey Referring Unavailable Oleghe, Efewongbe Referring Unavailable Oleghe, Efewongbe Primary Care Unavailable Leighton Hylton Attending Unavailable Oleghe, Efewongbe Primary Care Unavailable Colton Hartman Attending Unavailable Oleghe, Efewongbe Referring Unavailable Oleghe, Efewongbe Primary Care Unavailable Kim Pemberton Attending Unavailable Oleghe, Efewongbe Primary Care Unavailable Yury Stevens Attending Unavailable Oleghe, Efewongbe Referring Unavailable Allergies Allergy Classification Reported Allergen(s) Allergy Type Date of Onset Reaction(s) Facility (1 source) Amoxicillin Drug Allergy [address] [facility] (1 source) Erythromycin Drug Allergy [address] [facility] (13 sources) Penicillins; Translations: [Penicillins] Propensity to adverse reactions [address] [facility] Medications Current Medications Medication Drug Class(es) Dates Sig (Normalized) Sig (Original) Calcium Amino Acid Chelate 200 mg calcium tablet (7 sources) Start: 07-03-2024 Calcium Amino Acid Chelate 200 mg calcium tablet Active mg PO July 03, 2024 12:00am cholecalciferol 0.05 mg oral capsule (8 sources) Vitamin D Start: 06-08-2023 take 1 capsule by mouth once daily Cholecalciferol (Vitamin D3) 50 mcg (2,000 unit) capsule Active 50 ug PO DAILY June 08, 2023 12:00am Cranberry Fruit (8 sources) Non-Standardized Food Allergenic Extract, Non-Standardized Plant [...] Sig (Original) mecobalamin 1 mg chewable tablet (8 sources) Start: 06-08-2023 End: 07-03-2024 take 1 tablet by mouth once daily Mecobalamin (Vitamin B12) 1,000 mcg tablet,chewable Discontinued 1000 ug PO DAILY June 08, 2023 12:00am July 03, 2024 2:34pm nitrofurantoin, macrocrystals 25 mg / nitrofurantoin, monohydrate 75 mg oral capsule (20 sources) Nitrofuran Antibacterial Start: 03-27-2024 End: 04-03-2024 take 1 capsule by mouth every twelve hours at mealtime Nitrofurantoin Monohyd/M-Cryst 100 mg capsule Discontinued 1 NMA PO Q12H 14 7 0 March 27, 2024 1:00am April 02, 2024 1:00am April 03, 2024 1:11am administer with a meal/food; swallow whole; do not open, crush, dissolve , or chew Start: 07-07-2023 End: 07-12-2023 take 1 capsule by mouth every twelve hours at mealtime Nitrofurantoin Monohyd/M-Cryst (Macrobid) 100 mg capsule Discontinued 100 mg PO Q12H 10 5 0 July 07, 2023 12:00am July 11, 2023 12:00am July 12, 2023 12:05am must administer with a meal/food Start: 08-10-2022 End: 08-17-2022 take 1 capsule by mouth every twelve hours at mealtime Nitrofurantoin Monohyd/M-Cryst 100 mg capsule Discontinued 1 NMA PO Q12H 14 7 0 August 10, 2022 12:00am August 16, 2022 12:00am August 17, 2022 12:11am administer with a meal/food; swallow whole; do not open, crush, dissolve , or chew Problems Active Problems Problem Classification Problem Date Documented Date Episodic/Chronic Administrative/social admission (9 sources) Patient encounter status; Translations: [Persons encountering health services in other specified circumstances] 06-08-2023 Episodic Alcohol-related disorders (9 sources) Alcoholic liver damage; Translations: [Alcoholic liver disease, unspecified] Onset: 08-19-2024 08-14-2024 Chronic Other connective tissue disease (4 sources) Tenosynovitis of left radial styloid; Translations: [Radial styloid tenosynovitis [de Quervain]] 09-11-2024 Episodic Other connective tissue disease (1 source) Radial styloid tenosynovitis [de Quervain]; Translations: [Radial styloid tenosynovitis [de Quervain]] Onset: 09-11-2024 Episodic Other liver diseases (9 sources) Hepatic fibrosis; Translations: [Hepatic fibrosis] 07-29-2024 Chronic Other liver diseases (12 sources) Elevated liver enzymes level; Translations: [Abnormal levels of other serum enzymes] 06-08-2023 Episodic Other liver diseases (1 source) Abnormal levels of other serum enzymes; Translations: [Abnormal levels of other serum enzymes] Onset: 08-14-2024 Episodic Other non-traumatic joint disorders (4 sources) Pain in wrist; Translations: [Pain in left wrist] 09-11-2024 Episodic Other non-traumatic joint disorders (1 source) Pain in left wrist; Translations: [Pain in left wrist] Onset: 09-11-2024 Episodic Other skin disorders (11 sources) Nail deformity; Translations: [Other nail disorders] 08-06-2020 Episodic Unclassified (12 sources) For resuscitation 07-03-2024 Unclassified (1 source) Hepatic fibrosis, unspecified; Translations: [Hepatic fibrosis, unspecified] Onset: 08-14-2024 Past or Other Problems Problem Classification Problem Date Documented Da te Episodic/Chronic Genitourinary symptoms and ill-defined conditions (2 sources) Unspecified abnormal findings in urine; Translations: [Dysuria] Onset: 03-27-2024 Episodic Other screening for suspected conditions (not mental disorders or infectious disease) (11 sources) Mammography abnormal; Translations: [Patient encounter status] Onset: 06-21-2005 06-21-2005 Episodic Urinary tract infections (4 sources) Urinary tract infection, site not specified; Translations: [Urinary tract infection, site not specified] Onset: 03-27-2024 08-10-2022 Episodic Results Test Name Value Interpretation Reference Range Facility Orthopedic Visit Reporton Orthopedic Visit Report [facility] [address] [place] [address] [address] [place] [address] OFFICE VISIT Date of Service: 09/11/24 MR#: [id number] Acct: [id number] Name: FLORINA CASTILLO Rep #: [id number] : 1960 Provider: Dr. Leighton lara MD Age/Sex: 64/F Location: [facility] [place] Status: Signed Intake Vital Signs 08/14/24 09:36 09/11/24 08:29 Height 5 ft 3 in 5 ft 3 in Weight: 208 lb 3 oz 206 lb 4 oz BMI 36.8 36.5 BP 145/84 H Respiration 18 Pulse 68 Temp 97.2 F L Temp Source Temporal Pulse Oximetry (%) 97 Oxygen Delivery Method room air Intake Visit Reasons: LEFT WRIST Chief Complaint: Left wrist Accompanied by: Self Is patient in pain?: Yes Pain scale (1-10): 5 Allergies Penicillins Allergy (Unknown, Verified 09/11/24 08:33) unknown Medications ???Medication ???Instructions ???Recorded ???Confirmed ???Type cholecalciferol (vitamin D3) 50 50 mcg PO DAILY 06/08/23 09/11/24 History mcg (2,000 unit) capsule cranberry fruit 400 mg capsule 400 mg PO DAILY 06/08/23 09/11/24 History calcium amino acid chelate mg PO 07/03/24 09/11/24 History Have you fallen in the past year?: Yes [facility] Medical History (Updated 09/11/24 @ 08:40 by Leighton Hylton MD) De Quervain's tenosynovitis, left Left wrist pain Liver fibrosis Encounter for wellness examination Advance directive indicates [...] Heart disease Hypertension High cholesterol Social History adopted: No household members: spouse and children [...] social history: - [employer] HPI LEFT WRIST Details: This documentation accurately reflects the service provided and the decisions made by me, Dr. Leighton Hylton MD 09/11/24 0854. Part of today???s visit was documented by [ ], acting as scribe. AMBER CASTILLO is a 64 year old F here today for RHD fell 4 weeks ago dorsal wrist pain. retired. likes to read ans spend time wth the granddaughter. base of thumb pain worse with using the thumb. Ortho Exam General General: Yes no acute distress Neurologic: Yes alert and Yes oriented x3 Psychologic: Yes reasonable and appropriate Right Wrist/Hand Skin/Wound: No Swelling and No Ecchymosis Left Wrist/Hand Skin/Wound: Yes CDI, No Swelling, No Ecchymosis, Yes nail intact, Yes capillary refill normal and No erythema Left Wrist: Yes ROM-Extension 0-60, Yes ROM-Flexion 0-80, Yes ROM-Pronation 0-80, Yes ROM-Supination 0-90, Yes Snuffbox tenderness, Yes Sarah's Test and Yes tender to palpate 1st dorsal compartment; No Tender to palpate triangular fibrocartilage complex, No Distal radioulnar joint, No CMC Grind, No Thenar Atrophy and No Hypothenar Atrophy Motor: EPL: 5, FDP-2: 5, 1st Dorsal Interosseous: 5 and APB: 5 Sensation: Radial: I, Ulnar: I and Median: I Supplemental Info xr 3 view L wrist - nil acute Coding Level of Care Code Off vis,new,level 4 Diagnoses Left wrist pain M25.532 De Quervain's tenosynovitis, left M65.4 Assessment and Plan Assessment and Plan (1) Left wrist pain: Status: Acute Plan: 64-year-old female with left first dorsal compartment tenosynovitis. Patient wants to start with a thumb spica brace we prescribed that today as well as oral anti- inflammatories and declined the injection for now we will follow-up as needed. De Quervain's tenosynovitis is a condition that causes pain and inflammation in the tendons on the thumb side of the wrist. Treatment options include: Non-Surgical Measures: Rest: Avoid activities that aggravate the pain. Splinting: Wear a thumb spica splint to immobilize the thumb and wrist. A (more content not included)... Normal [facility] Wrist min 3 Viewson 09-12-19 Wrist min 3 Views [facility] Services [address] [place] [address] Wrist min 3 Views MR#: [id number] Acct: [id number] Name: KATHRYN CASTILLOCLARKE KVOACS Rep #: [id number] : 1960 F 64 From: Damon Riddle MD PCP: Dr. Matthew Solorio MD Status: DEP AMB Study: Wrist min 3 Views Date of Exam: 09/11/24 Exam# [id number] Ordering Dr: Leighton Hylton MD PROCEDURE: WRIST MIN 3 VIEWS 09/11/2024 REASON FOR EXAM: RECENT FALL, PAIN AT BASE OF THUMB TECHNIQUE: WRIST MIN 3 VIEWS COMPARISON: No FINDINGS: No fracture, dislocation, or soft tissue injury noted. RAD/Wrist min 3 Views IMPRESSION: No acute findings Reading Location: [place] [address] CC: Dr. Matthew Solorio MD; Dr. 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 COM[facility] Normal . [facility] Comment on above: Order Comment: [id number] 9ELF TEST SERUM RF Result Comment: Test Ordered: [id number] Enhanced Liver Fibrosis (ELF) ELF(TM) Score 9.42 Reference Range: <9.80 ELF(TM) Score Interpretation: Risk cut-offs to assess the likelihood of progression to cirrhosis and liver-related clinical events within 3.9 years following baseline ELF score (IQR: 14.0-22.4 months)*: Lower risk < 9.80 Mid risk 9.80 - 11.29 Higher risk >11.29 Note: The ELF(TM) Score is a unitless numerical value. *Ran SA, Rufus VW, Marry T, et al. Selonsertib for patients with bridging fibrosis or compensated cirrhosis due to AYALA: Results from randomized phase III STELLAR trials. J Hepatol. 2020 Aug;73(1):26-39. Performed at: [facility] [address] [id number] Bobbin Painter: Jayesh Hu MD, Phone: [phone] Performed at: [facility] [address] [id number] Bobbin Painter: Crispin Goodman PhD, Phone: [phone] Performed By: #### L 3890.6301, L500.3400, L3100.0300, L3890.6202, L3100.0460, L3410.9992, L300.3900, L3890.6102 ####[facility] [address] [place], [address] Hepatitis A AB, Totalon 06- HEPATITIS A,TOT Negative Normal Negative [facility] Comment on above: Result Comment: Comm ent: The HAV total antibody assay detects both IgG and IgM but does not differentiate between them. A negative result suggests susceptibility to infection. A positive result could be due to vaccination, previously resolved infection or active infection. Testing for HAV IgM should be performed if active HAV infection is suspected. [facility] offers profiles that will automatically reflex positive HAV total antibody results to IgM (e.g., panel #[id number] HAV Antibody w/ Rfx). Performed at: [address] [id number] Bobbin Painter: Crispin Goodman PhD, Phone: [phone] Performed By: #### L 3890.6301, L500.3400, L3100.0300, L3890.6202, L3100.0460, L3410.9992, L300.3900, L3890.6102 ####[facility] [address] [place], [place], [id number] Hepatitis B Core Ab Totalon 08-15-2024 HEP B CORE,TOT Negative Normal Negative [facility] Comment on above: Performed By: #### L 3890.6301, L500.3400, L3100.0300, L3890.6202, L3100.0460, L3410.9992, L300.3900, L3890.6102 ####[facility] [address] [place], [place], [id number] Bilirubin directOrdered By: Reanna Nielson on 08-14-2024 Bilirubin.direct [Mass/Vol] 0.14 mg/dL 0.00-0.30 [facility] Bilirubin, totalOrdered By: Reanna Nielson on 08-14-2024 Bilirubin [Mass/Vol] 0.30 mg/dL 0.00-1.30 [facility] Gastroenterology Visit Repor ton 08-14-2024 Gastroenterology Visit Report [facility] [address] [place] [address] OFFICE VISIT Date of Service: 08/14/24 MR#: [id number] Acct: [id number] Name: FLORINA CASTILLO Aristides KOVACS Rep #: [id number] : 1960 Provider: [employer]-C Reanna A nthony Age/Sex: 64/F Location: [facility] [place] Status: Signed Intake Vital Signs 07/03/24 14:38 08/14/24 09:36 Height 5 ft 3 in 5 ft 3 in Weight: 211 lb 208 lb 3 oz BMI 37.3 36.8 BP 120/80 145/84 H Blood Pressure Location Lt brachial Position Sitting Respiration 16 18 Pulse 68 68 Pulse Source Monitor Temp 97.3 F L 97.2 F L Temp Source Temporal Temporal Pulse Oximetry (%) 97 97 Oxygen Delivery Method room air room air Intake Visit Reasons: Hepatic Fibrosis Chief Complaint: Wellness/yearly Cattyman Required: No Accompanied by: Self Is patient in pain?: No Allergies Penicillins Allergy (Unknown, Verified 08/13/24 16:34) unknown Medications ???Medication ???Instructions ???Recorded ???Confirmed ???Type cholecalciferol (vitamin D3) 50 50 mcg PO DAILY 06/08/23 08/13/24 History mcg (2,000 unit) capsule cranberry fruit 400 mg capsule 400 mg PO DAILY 06/08/23 08/13/24 History calcium amino acid chelate mg PO 07/03/24 08/13/24 History Have you fallen in the past year?: No PFSH Medical History (Updated 08/14/24 @ 09:58 by JAZMIN Todd) Liver fibrosis Encounter for wellness examination Advance directive indicates [...] at home: Yes additional social history: - [employer] Female Reproductive History Menstrual Date of menopause: 02/19/07 HPI HPI Chief Complaint: Wellness/yearly Details: AMBER CASTILLO, is a 64 F who presents to the office today for LABS 07/03/2024 AST 43, ALT 54, ALP 111 - denies taking any NSAIDS - EtOH daily - 2-3 glasses of wine or beer and has done this for a very long time - denies any tattoos - denies any h/o blood transfusion or family h/o liver disease - weight is stable ABD US/Elastography: 07/22/2024 8.1kPa F2/F3 liver fibrosis The patient is a 64-year-old female presenting for evaluation of liver fibrosis and elevated liver enzymes. She was referred by Dr. Solorio after an ultrasound indicated liver fibrosis, which was her first time hearing about this condition. The patient underwent a colonoscopy last year, which showed normal results. Her blood work on July 03 revealed a hemoglobin level of 13.6, normal platelets at 359, and a trace elevation in blood glucose at 101. Liver function tests showed elevated AST at 43, ALT at 54, and alkaline phosphatase at 111, with normal albumin levels. An abdominal ultrasound on July 22 showed a normal-sized liver with normal texture and contour, no lesions, and normal hepatopedal flow. Elastography indicated moderate to severe hepatic fibrosis with a shear wave score of 8.1, suggesting F2 or F3 fibrosis. The patient has a history of cholecystectomy due to gallstones, which led to acute pancreatitis. She underwent an ERCP procedure prior to gallbladder removal, and has not experienced further pancreatic issues since. The patient reports daily alcohol consumption, typically two to three glasses of wine or beer, which has been a long-standing habit. She denies any tattoos, blood transfusions, or family history of liver disease. CAGE Alcohol CAGE Alcohol Questionnaire (CAGE) ??? Have you ever felt you needed to Cut down on your drinking? no ??? Have people Annoyed you by criticizing your drinking? no ? (more content not included)... Normal [facility] Hepatitis B Surface Antibody on 08-14-2024 HEP B Surf Ab Non-Reactive Normal [facility] Comment on above: Result Comment: <8.5 mIU/mL: Non-Reactive 8.5<= x <11.5 mIU/mL: Indeterminate >=11.5 mIU/mL: Reactive Non Reactive: Inconsistent with immunity less than <10 mIU/mL Reactive: Consistent with immunity greater than or equal to 10 mIU/mL Performed By: #### L 3890.6301, L500.3400, L3100.0300, L3890.6202, L3100.0460, L3410.9992, L300.3900, L3890.6102 ####[facility] [address] [place], [place], [phone] Hepatitis C Antibodyon 08-14 Hepatitis C Ab Non-Reactive Normal Nonreactive [facility] Comment on above: Result Comment: Reac tive: Presumptive evidence of antibodies to HCV. Follow CDC recommendations for supplemental testing. Non-Reactive: Antibodies to HCV were not detected; does not exclude the possibility of exposure to HCV Reactive Results are presumptive evidence of antibodies to HCV. Follow CDC recommendations for supplemental testing. Order confirmation testing: HCV Quant by PCR testing - HCVPCR #[id number] Non Reactive: < 0.8 Equivocal: >/= 0.8 to < 1.0 Reactive: >/= 1.0 The CDC requires that a reactive/equivocal HCV antibody result be sent out for confirmation. HCV Quant by PCR testing. Performed By: #### L 3890.6301, L500.3400, L3100.0300, L3890.6202, L3100.0460, L3410.9992, L300.3900, L3890.6102 ####[facility] [address] [place], [place], [id number] International normalized rat io (INR) calculationOrdered By: Reanna Nielson on 08-14-2024 INR Coag (Bld) [Relative time] 1.0 {INR} [facility] L3890.6102on 08-14-2024 HEP B Surf Ag Non-Reactive Normal Nonreactive [facility] Comment on above: Result Comment: Reac tive: Presumptive evidence of HBV. Repeatedly reactive samples must be confirmed using a neutralization test ([employer] HBsAg Confirmatory Test) Non-Reactive: HBsAg not detected; does not exclude the possibility of exposure to HBV Performed By: #### L 3890.6301, L500.3400, L3100.0300, L3890.6202, L3100.0460, L3410.9992, L300.3900, L3890.6102 ####[facility] [address] [place], [place], [id number] Laboratory - Chemistry and C hemistry - challengeOrdered By: Reanna Nielson on 08-14-2024 AST [Catalytic activity/Vol] 40 U/L High <32 [facility] Laboratory - Microbiology an d Antimicrobial susceptibilityOrdered By: Reanna Nielson on 08-14-2024 HBV surface Ag Ql (S) Non-Reactive Nonreactive [facility] Comment on above: Reactive: Presumptiv e evidence of HBV. Repeatedly reactive samples must be confirmed using a neutralization test ([employer] HBsAg Confirmatory Test)Non-Reactive: HBsAg not detected; does not exclude the possibility of exposure to HBV Liver Profileon 08-14-2024 Albumin [Mass/Vol] 4.2 g/dL Normal 3.4-4.8 [facility] Comment on above: Performed By: #### L 3890.6301, L500.3400, L3100.0300, L3890.6202, L3100.0460, L3410.9992, L300.3900, L3890.6102 ####[facility] [address] [place], [address] ALK PHOS 125 U/L High 35-104 [facility] Comment on above: Performed By: #### L 3890.6301, L500.3400, L3100.0300, L3890.6202, L3100.0460, L3410.9992, L300.3900, L3890.6102 ####[facility] [address] [place], [address] ALT [Catalytic activity/Vol] 53 U/L High <=34 [facility] Comment on above: Performed By: #### L 3890.6301, L500.3400, L3100.0300, L3890.6202, L3100.0460, L3410.9992, L300.3900, L3890.6102 ####[facility] [address] [place], [address] AST [Catalytic activity/Vol] 40 U/L High <=31 [facility] Comment on above: Performed By: #### L 3890.6301, L500.3400, L3100.0300, L3890.6202, L3100.0460, L3410.9992, L300.3900, L3890.6102 ####[facility] [address] [place], [place], [phone]) Bilirubin [Mass/Vol] 0.30 mg/dL Normal 0.00-1.30 [facility] Comment on above: Performed By: #### L 3890.6301, L500.3400, L3100.0300, L3890.6202, L3100.0460, L3410.9992, L300.3900, L3890.6102 ####[facility] [address] [place], [place], [phone]) Bilirubin.direct [Mass/Vol] 0.14 mg/dL Normal 0.00-0.30 [facility] Comment on above: Performed By: #### L 3890.6301, L500.3400, L3100.0300, L3890.6202, L3100.0460, L3410.9992, L300.3900, L3890.6102 ####[facility] [address] [place], [address] Globulin (S) [Mass/Vol] 3.1 g/dL Normal 2.2-4.2 [facility] Comment on above: Performed By: #### L 3890.6301, L500.3400, L3100.0300, L3890.6202, L3100.0460, L3410.9992, L300.3900, L3890.6102 ####[facility] [address] [place], [address] T PROT 7.3 g/dL Normal 5.9-8.4 [facility] Comment on above: Performed By: #### L 3890.6301, L500.3400, L3100.0300, L3890.6202, L3100.0460, L3410.9992, L300.3900, L3890.6102 ####[facility] [address] [place], [address] Prothrombin Time w/INRon INR Coag (PPP) [Relative time] 1.0 {INR} Normal [facility] Comment on above: Performed By: #### L 3890.6301, L500.3400, L3100.0300, L3890.6202, L3100.0460, L3410.9992, L300.3900, L3890.6102 #### [facility] [address] [place], [address] PT Coag (PPP) [Time] 13.7 s Normal 11.7-14.9 [facility] Comment on above: Performed By: #### L 3890.6301, L500.3400, L3100.0300, L3890.6202, L3100.0460, L3410.9992, L300.3900, L3890.6102 #### [facility] [address] [place], [address] Prothrombin timeOrdered By: Reanna Nielson on 08-14-2024 PT Coag (PPP) [Time] 13.7 s 11.7-14.9 [facility] Serum globulin measurementOr dered By: Reanna Nielson on 08-14-2024 Globulin (S) [Mass/Vol] 3.1 g/dL 2.2-4.2 [facility] Serum hepatitis B virus core antibody detectionOrdered By: Reanna Nielson on 08-14-2024 HBV core Ab Ql (S) Negative Negative [facility] Serum hepatitis B virus surf rafia antibody detectionOrdered By: Reanna Nielson on 08-14-2024 HBV surface Ab Ql (S) Non-Reactive [facility] Comment on above: <8.5 mIU/mL: Non-[place] ctive8.5<= x <11.5 mIU/mL: Indeterminate>=11.5 mIU/mL: Reactive Non Reactive: Inconsistent with immunity less than <10 mIU/mL Reactive: Consistent with immunity greater than or equal to 10 mIU/mL Serum or plasma alanine cummings otransferase (ALT) measurementOrdered By: Reanna Nielson on 08-14-2024 ALT [Catalytic activity/Vol] 53 U/L High <35 [facility] Serum or plasma albumin samantha urement (mass/volume)Ordered By: Reanna Nielson on 08-14-2024 Albumin [Mass/Vol] 4.2 g/dL 3.4-4.8 [facility] Serum or plasma alkaline barbra sphatase measurementOrdered By: Reanna Nielson on 08-14-2024 ALP [Catalytic activity/Vol] 125 U/L High 35-104 [facility] Total proteinOrdered By: Viktoriya Nielson on 08-14-2024 Protein [Mass/Vol] 7.3 g/dL 5.9-8.4 [facility] ABD Limited w/ Elastographyo n 07-22-2024 ABD Limited w/ Elastography [facility] Services [address] [place] [address] ABD Limited w/ Elastography MR#: [id number] Acct: [id number] Name: FLORINA CASTILLO FERMÍN Rep #: [id number] : 1960 F 64 From: Vasile Hawkins MD PCP: Dr. Matthew Solorio MD Status: REG CLI Study: ABD Limited w/ Elastography Date of Exam: 05/13 Exam# [id number] Ordering Dr: Matthew Solorio MD PROCEDURE: ABD LIMITED W/ ELASTOGRAPHY REASON FOR EXAM: ELEVATED LIVER ENZYMES COMPARISON: None. TECHNIQUE: Right upper quadrant abdominal ultrasound along with shear wave elastography for non-invasive assessment of liver tissue stiffness. FINDINGS: LIVER: SIZE: Unremarkable LENGTH: 18.4 cm sagittally. ECHOTEXTURE: Normal. CONTOUR: Normal LESIONS: None identified BLOOD FLOW: Hepatopetal. ELASTOGRAPHY: EQI Med: 8.1 kPa EQI Med Rik: 1.63 m/s GALLBLADDER: Surgically absent. COMMON BILE DUCT: 1.1 cm. . PANCREAS: Normal RIGHT KIDNEY: Size measures 11.1 x 5.4 x 4.5 cm. Cortex measures 1.5 cm. US/ABD Limited w/ Elastography IMPRESSION: 1. F 2 to F 3, moderate to severe clinical likelihood of significant hepatic fibrosis. 2. Status post cholecystectomy. Reference Values: SRU <1.37 m/s (5.7kPa): No to mild fibrosis 1.37 m/s - 2.2 m/s: Moderate to severe fibrosis >2.2 m/s (15kPa): Significant fibrosis / cirrhosis METAVIR Score F2 or higher: 1.34 m/s (5.7kPa) F3 or higher: 1.55 m/s (7.3kPa) F4: 1.80 m/s (10kPa) Reading Location: [place] [address] CC: Dr. Matthew Solorio MD Cane Flume Chute Operator: Signed Normal [facility] Absolute lymphocyte countOrd ered By: Matthew Solorio on 07-03-2024 Lymphocytes Auto (Unsp spec) [#/Vol] 2.12 10*3/uL 0.83-4.51 [facility] Absolute neutrophil countOrd ered By: Matthew Solorio on 07-03-2024 Neutrophils (Bld) [#/Vol] 5.2 10*3/uL 2.0-7.7 [facility] Anion gap in Serum or Plasma Ordered By: Matthew Solorio on 07-03-2024 Anion gap [Moles/Vol] 11 mmol/L - [facility] Automated lymphocyte count a s percentage of total leukocytesOrdered By: Matthew Solorio on 07-03-2024 Lymphocytes/100 WBC Auto (Unsp spec) 25.5 % 19- [facility] BUN/creatinine ratioOrdered By: antionettemonrovialayla Solorio on 07-03-2024 Urea nitrogen/Creatinine [Mass ratio] 16.8 mg/mg 10- [facility] Basophil percentageOrdered B y: Matthew Solorio on 07-03-2024 Basophils/100 WBC (Bld) 0.8 % 0-1 [facility] Bilirubin, totalOrdered By: Matthew Solorio on 07-03-2024 Bilirubin [Mass/Vol] 0.45 mg/dL 0.00-1.30 [facility] CBC W/Diff, Automatedon 06-19 Absolute Lymph 2.12 X10 3/uL Normal 0.83-4.51 [facility] Comment on above: Performed By: #### L 100.0100, L500.4100, L500.4050 #### [facility] [address] [place], [address] Absolute Neut 5.2 X10 3/uL Normal 2.0-7.7 [facility] Comment on above: Performed By: #### L 100.0100, L500.4100, L500.4050 #### [facility] [address] [place], [address] Basophils/100 WBC (Bld) 0.8 % Normal 0-1 [facility] Comment on above: Performed By: #### L 100.0100, L500.4100, L500.4050 #### [facility] [address] [place], [address] Eosinophils/100 WBC (Bld) 4.0 % Normal 0-5 [facility] Comment on above: Performed By: #### L 100.0100, L500.4100, L500.4050 #### [facility] [address] [place], [address] Erythrocyte distribution width (RBC) [Ratio] 12.9 % Normal 11.6-14.6 [facility] Comment on above: Performed By: #### L 100.0100, L500.4100, L500.4050 #### [facility] [address] [place], [address] Hematocrit (Bld) [Volume fraction] 41.3 % Normal 37-47 [facility] Comment on above: Performed By: #### L 100.0100, L500.4100, L500.4050 #### [facility] [address] [place], [address] Hemoglobin (Bld) [Mass/Vol] 13.6 g/dL Normal 12.0-15.0 [facility] Comment on above: Performed By: #### L 100.0100, L500.4100, L500.4050 #### [facility] [address] [place], [address] IG% 0.200 Normal 0.0-0.9 [facility] Comment on above: Result Comment: IG% - Immature Granulocytes (promyelocytes, myelocytes and metamyelocytes) > 1% indicates that a LEFT SHIFT is Present. Performed By: #### L 100.0100, L500.4100, L500.4050 #### [facility] [address] [place], [address] Lymphocytes/100 WBC (Bld) 25.5 % Normal 19-41 [facility] Comment on above: Performed By: #### L 100.0100, L500.4100, L500.4050 #### [facility] [address] [place], [address] MCH (RBC) [Entitic mass] 31.2 pg Normal 27.0-32.0 [facility] Comment on above: Performed By: #### L 100.0100, L500.4100, L500.4050 #### [facility] [address] [place], [address] MCHC (RBC) [Mass/Vol] 32.9 g/dL Normal 32-36 [facility] Comment on above: Performed By: #### L 100.0100, L500.4100, L500.4050 #### [facility] [address] [place], [address] MCV (RBC) [Entitic vol] 94.7 fL Normal 81-99 [facility] Comment on above: Performed By: #### L 100.0100, L500.4100, L500.4050 #### [facility] [address] [place], [address] Monocytes/100 WBC (Bld) 7.1 % Normal 0-10 [facility] Comment on above: Performed By: #### L 100.0100, L500.4100, L500.4050 #### [facility] [address] [place], [address] Neutrophils/100 WBC (Bld) 62.4 % Normal 47-70 [facility] Comment on above: Performed By: #### L 100.0100, L500.4100, L500.4050 #### [facility] [address] [place], [address] Nucleated RBC (Bld) [#/Vol] 0 10*3/uL Normal 0-5 [facility] Comment on above: Performed By: #### L 100.0100, L500.4100, L500.4050 #### [facility] [address] [place], [address] Platelet mean volume (Bld) [Entitic vol] 10.8 fL Normal 6.2-12.0 [facility] Comment on above: Performed By: #### L 100.0100, L500.4100, L500.4050 #### [facility] [address] [place], [address] Platelets (Bld) [#/Vol] 359 10*3/uL Normal 150-450 [facility] Comment on above: Performed By: #### L 100.0100, L500.4100, L500.4050 #### [facility] [address] [place], [address] RBC (Bld) [#/Vol] 4.36 10*6/uL Normal 4.2-5.4 [facility] Comment on above: Performed By: #### L 100.0100, L500.4100, L500.4050 #### [facility] [address] [place], [address] RDW SD 44.7 fl High 35.1-43.9 [facility] Comment on above: Performed By: #### L 100.0100, L500.4100, L500.4050 #### [facility] [address] [place], [address] WBC (Bld) [#/Vol] 8.3 10*3/uL Normal 4.4-11.0 [facility] Comment on above: Performed By: #### L 100.0100, L500.4100, L500.4050 #### [facility] [address] [place], [address] Calculated very low density lipoprotein (VLDL) cholesterol measurementOrdered By: Matthew Solorio on 07-03-2024 Calculated very low density lipoprotein (VLDL) cholesterol measurement 23 mg/dL 5-40 [facility] Carbon dioxide, total [Moles /volume] in Central venous bloodOrdered By: Matthew Solorio on 07-03-2024 CO2 [Moles/Vol] 24.3 mmol/L 21.0-32.0 [facility] Chloride assayOrdered By: Abby catherine Gilbertoharika on 07-03-2024 Chloride [Moles/Vol] 102 mmol/L 98-108 [facility] Comprehensive Metabolic Prof ilon 07-03-2024 Albumin [Mass/Vol] 4.2 g/dL Normal 3.4-4.8 [facility] Comment on above: Performed By: #### L 100.0100, L500.4100, L500.4050 #### [facility] [address] [place], [address] Albumin/Globulin [Mass ratio] 1.3 {ratio} Normal 0.9-2.4 [facility] Comment on above: Performed By: #### L 100.0100, L500.4100, L500.4050 #### [facility] [address] [place], [address] ALK PHOS 111 U/L High 35-104 [facility] Comment on above: Performed By: #### L 100.0100, L500.4100, L500.4050 #### [facility] [address] [place], [address] ALT [Catalytic activity/Vol] 54 U/L High <=34 [facility] Comment on above: Performed By: #### L 100.0100, L500.4100, L500.4050 #### [facility] [address] [place], [address] AST [Catalytic activity/Vol] 43 U/L High <=31 [facility] Comment on above: Performed By: #### L 100.0100, L500.4100, L500.4050 #### [facility] [address] [place], [address] Bilirubin [Mass/Vol] 0.45 mg/dL Normal 0.00-1.30 [facility] Comment on above: Performed By: #### L 100.0100, L500.4100, L500.4050 #### [facility] [address] [place], [address] BUN/CRE 16.8 RATIO Normal 10-20 [facility] Comment on above: Performed By: #### L 100.0100, L500.4100, L500.4050 #### [facility] [address] [place], [address] Calcium [Mass/Vol] 10.0 mg/dL Normal 7.6-11.0 [facility] Comment on above: Performed By: #### L 100.0100, L500.4100, L500.4050 #### [facility] [address] [place], [address] Chloride [Moles/Vol] 102 mmol/L Normal 98-108 [facility] Comment on above: Performed By: #### L 100.0100, L500.4100, L500.4050 #### [facility] [address] [place], [address] CO2 [Moles/Vol] 24.3 mmol/L Normal 21.0-32.0 [facility] Comment on above: Performed By: #### L 100.0100, L500.4100, L500.4050 #### [facility] [address] [place], [address] Creatinine [Mass/Vol] 0.68 mg/dL Low 0.70-1.20 [facility] Comment on above: Performed By: #### L 100.0100, L500.4100, L500.4050 #### [facility] [address] [place], [address] GAP 11 Normal 5-15 [facility] Comment on above: Performed By: #### L 100.0100, L500.4100, L500.4050 #### [facility] [address] [place], [address] GFR/1.73 sq M.predicted among non-blacks MDRD (S/P/Bld) [Vol rate/Area] 97 mL/min/{1.73_m2} Normal >60 [facility] Comment on above: Result Comment: mL/m in/1.73m2 CKD-EPI Creatinine Equation (2020) Performed By: #### L 100.0100, L500.4100, L500.4050 #### [facility] [address] [place], [address] Globulin (S) [Mass/Vol] 3.2 g/dL Normal 2.2-4.2 [facility] Comment on above: Performed By: #### L 100.0100, L500.4100, L500.4050 #### [facility] [address] [place], [address] Glucose [Mass/Vol] 101 mg/dL High 70-99 [facility] Comment on above: Performed By: #### L 100.0100, L500.4100, L500.4050 #### [facility] [address] [place], [address] Potassium [Moles/Vol] 4.2 mmol/L Normal 3.3-5.1 [facility] Comment on above: Performed By: #### L 100.0100, L500.4100, L500.4050 #### [facility] [address] [place], [address] Sodium [Moles/Vol] 138 mmol/L Normal 133-145 [facility] Comment on above: Performed By: #### L 100.0100, L500.4100, L500.4050 #### [facility] [address] [place], [address] T PROT 7.5 g/dL Normal 5.9-8.4 [facility] Comment on above: Performed By: #### L 100.0100, L500.4100, L500.4050 #### [facility] [address] [place], [place], [address] Urea nitrogen [Mass/Vol] 11 mg/dL Normal 4-19 [facility] Comment on above: Performed By: #### L 100.0100, L500.4100, L500.4050 #### [facility] [address] [place], [address] Eosinophil percentageOrdered By: Matthew Solorio on 07-03-2024 Eosinophils/100 WBC (Bld) 4.0 % 0-5 [facility] Erythrocyte distribution wid th ratioOrdered By: antionettemonrovialayla Solorio on 07-03-2024 Erythrocyte distribution width (RBC) [Ratio] 12.9 % 11.6-14.6 [facility] Erythrocyte distribution wid th standard deviationOrdered By: antionettemonrovialayla Solorio on 07-03-2024 Erythrocyte distribution width (RBC) [Ratio] 44.7 fl High 35.1-43.9 [facility] Glomerular filtration rate ( GFR) estimation/1.73 sq m using serum, plasma, or whole bOrdered By: Matthew Solorio on 07-03-2024 GFR/1.73 sq M.predicted among non-blacks MDRD (S/P/Bld) [Vol rate/Area] 97 mL/min/{1.73_m2} >60 [facility] Comment on above: mL/min/1.73m2 CKD-EP I Creatinine Equation (2020) Hematocrit Auto (Bld) [Volum e fraction]Ordered By: Matthew Solorio on 07-03-2024 Hematocrit (Bld) [Volume fraction] 41.3 % 37-47 [facility] Hemoglobin measurementOrdere d By: Matthew Solorio on 07-03-2024 Hemoglobin (Bld) [Mass/Vol] 13.6 g/dL 12.0-15.0 [facility] Immature granulocytes/100 WB C Auto (Bld)Ordered By: Matthew Solorio on 07-03-2024 Immature granulocytes/100 WBC (Bld) 0.200 % 0.0-0.9 [facility] Comment on above: IG% - Immature Granu locytes (promyelocytes, myelocytes and metamyelocytes) > 1% indicates that a LEFT SHIFT is Present. Internal Medicine Office Vis ananya 07-03-2024 Internal Medicine Office Visit [facility] [address] [place] [address] OFFICE VISIT Date of Service: 07/03/24 MR#: [id number] Acct: [id number] Name: FLORINA CASTILLO Rep #: [id number] : 1960 Provider: Dr. Matthew zamorano MD Age/Sex: 64/F Location: [facility] Status: Signed Intake Vital Signs 10/08/23 09:03 07/03/24 14:38 Height 5 ft 3 in 5 ft 3 in Weight: 211 lb BMI 37.3 BP 120/80 Blood Pressure Location Lt brachial Position Sitting Respiration 16 Pulse 68 Pulse Source Monitor Temp 97.3 F L Temp Source Temporal Pulse Oximetry (%) 97 Oxygen Delivery Method room air Intake Visit Reasons: wellness Chief Complaint: Wellness/yearly [place] Required: No Is patient in pain?: No [...] at home: Yes additional social history: - [employer] Female Reproductive History Menstrual Date [...] ear or mastoid pain, tinnitus, balance problems, nosebleed/epistaxis , nasal congestion, headache(s), neck pain or sore throat Resp Respiratory: No cough, excessive phlegm production, pain on inspiration, shortness of breath, snoring or wheezing Cardio Cardiology: No chest pain at rest, chest pain with exertion, excessive sweating, shortness of breath, dyspnea on exertion, lightheadedness, orthopnea or palpitations Gastro GI: No abdominal pain, change in bowel habits, constipation, cramping, diarrhea, nausea/dyspepsia or vomiting Genitourinary-Femal e: No burning urination, painful urination, urinary incontinence, [...] No behavioral (more content not included)... Normal [facility] LDL calc ser/plasOrdered By: Matthew Solorio on 07-03-2024 Cholesterol in LDL [Mass/Vol] 109 mg/dL [facility] Comment on above: Zdfujumylp=049-211 m g/dL & Higher Jjhu=368 mg/dL or greater Laboratory - Chemistry and C hemistry - challengeOrdered By: Matthew Solorio on 07-03-2024 AST [Catalytic activity/Vol] 43 U/L High <32 [facility] Lipid Profileon 07-03-2024 CHOL:HDL 2.97 Normal [facility] Comment on above: Performed By: #### L 100.0100, L500.4100, L500.4050 #### [facility] [address] [place], [address] Cholesterol [Mass/Vol] 199 mg/dL Normal <=200 [facility] Comment on above: Result Comment: Chol esterol level, Desirable <200 mg/dL Borderline high cholesterol 200-239 mg/dL High cholesterol >=240 mg/dL Recommendations of the NCEP Adult Treatment Panel for the following risk-cutoff thresholds for the [place] Citizen population. Performed By: #### L 100.0100, L500.4100, L500.4050 #### [facility] [address] [place], [address] Cholesterol in HDL [Mass/Vol] 67 mg/dL Normal [facility] Comment on above: Result Comment: Leah onal Cholesterol Education Program (NCEP) guidelines: <40 mg/dL: Low HDL-cholesterol (major risk factor for CHD) >= 60 mg/dL: High HDL-cholesterol (negative risk factor for CHD) HDL-cholesterol is affected by a number of factors, e.g. smoking, exercise, hormones, sex and age. Performed By: #### L 100.0100, L500.4100, L500.4050 #### [facility] [address] [place], [address] Cholesterol in LDL [Mass/Vol] 109 mg/dL Normal [facility] Comment on above: Result Comment: Bord yxefai=659-372 mg/dL Higher Fanv=614 mg/dL or greater Performed By: #### L 100.0100, L500.4100, L500.4050 #### [facility] [address] [place], [address] Cholesterol in VLDL [Mass/Vol] 23 mg/dL Normal 5-40 [facility] Comment on above: Performed By: #### L 100.0100, L500.4100, L500.4050 #### [facility] [address] [place], [address] Triglyceride [Mass/Vol] 115 mg/dL Normal [facility] Comment on above: Result Comment: The drugs N-Acetylcysteine and Metamizole may falsely depress this assay. Normal range: <150 mg/dL Borderline High: 150-199 mg/dL High: 200-499 mg/dL Very High: >500 mg/dL Performed By: #### L 100.0100, L500.4100, L500.4050 #### [facility] [address] [place], [address] MCV (mean corpuscular volume ) determinationOrdered By: Matthew Solorio on 07-03-2024 MCV (RBC) [Entitic vol] 94.7 fL 81-99 [facility] Mean corpuscular hemoglobin (MCH) determinationOrdered By: Matthew Solorio on 07-03-2024 MCH (RBC) [Entitic mass] 31.2 pg 27.0-32.0 [facility] Mean corpuscular hemoglobin concentration (MCHC) determinationOrdered By: Matthew Solorio on 07-03-2024 MCHC (RBC) [Mass/Vol] 32.9 g/dL 32-36 [facility] Mean platelet volume determi nationOrdered By: Matthew Solorio on 07-03-2024 Platelet mean volume (Bld) [Entitic vol] 10.8 fL 6.2-12.0 [facility] Monocyte percentageOrdered B y: Matthew Solorio on 07-03-2024 Monocytes/100 WBC (Bld) 7.1 % 0-10 [facility] Neutrophil percentageOrdered By: Matthew Solorio on 07-03-2024 Neutrophils/100 WBC (Bld) 62.4 % 47-70 [facility] Nucleated red blood cell per centageOrdered By: Matthew Solorio on 07-03-2024 Nucleated RBC/100 WBC (Bld) [Ratio] 0 % 0-5 [facility] Platelet countOrdered By: Abby Solorio on 07-03-2024 Platelets (Bld) [#/Vol] 359 10*3/uL 150-450 [facility] Potassium measurement (mass/ volume)Ordered By: Matthew Solorio on 07-03-2024 Potassium (Unsp spec) [Mass/Vol] 4.2 mmol/L 3.3-5.1 [facility] RBC Auto (Bld) [#/Vol]Ordere d By: Matthew Solorio on 07-03-2024 RBC (Bld) [#/Vol] 4.36 10*6/uL 4.2-5.4 [facility] Screening total cholesterol/ high density lipoprotein (HDL) cholesterol ratioOrdered By: Matthew Solorio on 07-03-2024 Cholesterol.total/Cholest milagros in HDL [Mass ratio] 2.97 {ratio} [facility] Serum creatinine measurement (mass/volume)Ordered By: Matthew Solorio on 07-03-2024 Creatinine [Mass/Vol] 0.68 mg/dL Low 0.70-1.20 [facility] Serum globulin measurementOr dered By: Matthew Solorio on 07-03-2024 Globulin (S) [Mass/Vol] 3.2 g/dL 2.2-4.2 [facility] Serum glucose measurement (m ass/volume)Ordered By: Matthew Solorio on 07-03-2024 Glucose [Mass/Vol] 101 mg/dL High 70-99 [facility] Serum or plasma alanine cummings otransferase (ALT) measurementOrdered By: Matthew Solorio on 07-03-2024 ALT [Catalytic activity/Vol] 54 U/L High <35 [facility] Serum or plasma albumin samantha urement (mass/volume)Ordered By: Matthew Solorio on 07-03-2024 Albumin [Mass/Vol] 4.2 g/dL 3.4-4.8 [facility] Serum or plasma albumin/glob ulin mass ratioOrdered By: Matthew Solorio 07-03-2024 Albumin/Globulin [Mass ratio] 1.3 {ratio} 0.9-2.4 [facility] Serum or plasma alkaline barbra sphatase measurementOrdered By: Matthew Solorio on 07-03-2024 ALP [Catalytic activity/Vol] 111 U/L High 35-104 [facility] Serum or plasma calcium samantha urement (mass/volume)Ordered By: Matthew Solorio 07-03-2024 Calcium [Mass/Vol] 10.0 mg/dL 7.6-11.0 [facility] Serum or plasma cholesterol in HDL measurement (mass/volume)Ordered By: Matthew Solorio on 07-03-2024 Cholesterol in HDL [Mass/Vol] 67 mg/dL >40 [facility] Comment on above: National Cholesterol Education Program (NCEP) guidelines:<40 mg/dL: Low HDL-cholesterol (major risk factor for CHD)>= 60 mg/dL: High HDL-cholesterol (negative risk factor for CHD)HDL-cholesterol is affected by a number of factors, e.g. smoking, exercise, hormones, sex and age. Serum or plasma cholesterol measurement (mass/volume)Ordered By: Matthew Solorio on 07-03-2024 Cholesterol [Mass/Vol] 199 mg/dL <201 [facility] Comment on above: Cholesterol level, D esirable <200 mg/dLBorderline high cholesterol 200-239 mg/dLHigh cholesterol >=240 mg/dLRecommendations of the NCEP Adult Treatment Panel for the following risk-cutoff thresholds for the [place] Citizen population. Serum or plasma urea nitroge n measurement (mass/volume)Ordered By: Matthew Solorio on 07-03-2024 Urea nitrogen [Mass/Vol] 11 mg/dL 4-19 [facility] Sodium levelOrdered By: Javy laradeneen Osmin on 07-03-2024 Sodium [Moles/Vol] 138 mmol/L 133-145 [facility] Total proteinOrdered By: Daniel rufuslayla Solorio on 07-03-2024 Protein [Mass/Vol] 7.5 g/dL 5.9-8.4 [facility] Triglycerides measurementOrd ered By: Matthew Solorio on 07-03-2024 Triglyceride [Mass/Vol] 115 mg/dL <199 [facility] Comment on above: The drugs N-Acetylcy steine and Metamizole may falsely depress this assay. Normal range: <150 mg/dLBorderline High: 150-199 mg/dLHigh: 200-499 mg/dLVery High: >500 mg/dL White blood cell (WBC) count Ordered By: Matthew Solorio on 07-03-2024 WBC (Bld) [#/Vol] 8.3 10*3/uL 4.4-11.0 [facility] Urine Cultureon 03-29-2024 URC Presumptive E. coli [place] Count >100,000 Presumptive E. coli: REACTION Ampicillin [...] TMP SMX Islt CANDELARIA <=20 S Normal [facility] Comment on above: Performed By: #### M 100.3649 ####[facility] [address] [place], [address] Laboratory - Chemistry and C hemistry - challengeOrdered By: Yury Rojas on 03-27-2024 Bilirubin Ql (U) Negative [facility] Glucose Ql (U) Negative [facility] Ketones Ql (U) Negative [facility] pH (U) 7.5 [pH] [facility] Specific gravity (U) [Rel density] 1.020 [facility] Urobilinogen (U) [Mass/Vol] Negative [facility] Laboratory - Hematology and Cell countsOrdered By: Yury Rojas on 03-27-2024 Hemoglobin Ql (U) Negative [facility] Laboratory - Specimen inform ationOrdered By: Yury Rojas on 03-27-2024 Clarity (U) Cloudy [facility] Color (U) Yellow [facility] Laboratory - UrinalysisOrder ed By: Yury Rojas on 03-27-2024 Nitrite Ql (U) Positive [facility] Protein Ql (U) 2+ [facility] No Panel InformationOrdered By: Yury Rojas on 03-27-2024 Urine Leukocytes Positive [facility] Urine Non-Hemolyzed Blood Large [facility] Urgent Care Visit Reporton 0 03-27-2024 Urgent Care Visit Report [facility] [address], [address] [place] [address] OFFICE VISIT Date of Service: 03/27/24 MR#: [id number] Acct: [id number] Name: FLORINA CASTILLO Rep #: [id number] : 1960 Provider: PEGGY Brownlee Age/Sex: 63/F Location: [facility] Status: Signed Intake Vital Signs 10/08/23 09:03 03/27/24 09:46 Height 5 ft 3 in BP 124/60 H Blood Pressure Location Lt brachial Position Sitting Respiration 16 Pulse 77 Pulse Source NIBP Temp 97.9 F Temp Source Oral Pulse Oximetry (%) 98 Oxygen Delivery Method room air Intake Visit Reasons: Urinary tract infection Chief Complaint: dysuria, urgency, low back pain Cattyman Required: No Is patient in pain?: No [...] house current occupational status: employed 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 No other associated symptoms or alleviating/aggrava ting factors. ROS Const Constitutional: No other (6 [...] Driver on 03/27/24 09:52 Off Ur Spec [place] 1.020 Last Edit by Norma Driver on [...] advised of (more content not included)... Normal [facility] Urine cultureOrdered By: Alphonso Rojas on 03-27-2024 Bacteria identified Cx Nom (U) Presumptive E. coli Abnormal [facility] PAP IG HPV APTIMA 16/18,45on 10-16-2023 ADEQ Comment Normal . [facility] Comment on above: Order Comment: Speci men Comment: [id number] Specimen Comment: Source.............Cervix Specimen Comment: Other..............Post Menopausal Specimen Comment: No. of containers..01 ThinPrep Vial Result Comment: Sati sfactory for evaluation. Endocervical and/or squamous metaplastic cells (endocervical component) are present. Performed By: #### L 7400.0280 #### [facility] [address] [place], [place], [id number] COMM . Normal . [facility] Comment on above: Order Comment: Speci men Comment: [id number] Specimen Comment: Source.............Cervix Specimen Comment: Other..............Post Menopausal Specimen Comment: No. of containers..01 ThinPrep Vial Performed By: #### L 7400.0280 #### [facility] [address] [place], [place], [id number] COMMENT Comment Normal . [facility] Comment on above: Order Comment: Speci men Comment: [id number] Specimen Comment: Source.............Cervix Specimen Comment: Other..............Post Menopausal Specimen Comment: No. of containers..01 ThinPrep Vial Result Comment: This liquid based ThinPrep(R) pap test was screened with the use of an image guided system. Performed By: #### L 7400.0280 #### [facility] [address] [place], [place], [id number] DIAG Comment Normal . [facility] Comment on above: Order Comment: Speci men Comment: [id number] Specimen Comment: Source.............Cervix Specimen Comment: Other..............Post Menopausal Specimen Comment: No. of containers..01 ThinPrep Vial Result Comment: NEGA TIVE FOR INTRAEPITHELIAL LESION OR MALIGNANCY. REACTIVE CELLULAR CHANGES AND/OR REPAIR ARE PRESENT. Performed By: #### L 7400.0280 #### [facility] [address] [place], [place], [id number] HPV APTIMA, HR Negative Normal Negative [facility] Comment on above: Order Comment: Speci men Comment: [id number] Specimen Comment: Source.............Cervix Specimen Comment: Other..............Post Menopausal Specimen Comment: No. of containers..01 ThinPrep Vial Result Comment: This nucleic acid amplification test detects fourteen high- risk HPV types (16,18,31,33,35,39,45,51,52,56,58,59,66,68) without differentiation. Performed By: #### L 7400.0280 #### [facility] [address] [place], [place], [address] HPV Airam Rfx Comment Normal . [facility] Comment on above: Order Comment: Speci men Comment: [id number] Specimen Comment: Source.............Cervix Specimen Comment: Other..............Post Menopausal Specimen Comment: No. of containers..01 ThinPrep Vial Result Comment: Crit eria not met, HPV Genotype not performed. Performed at: - [address] [id number] Bobbin Painter: Rochelle Means MD, Phone: [phone] Performed at: =[address] [id number] Bobbin Painter: Rochelle Means MD, Phone: [phone] Performed By: #### L 7400.0280 #### [facility] [address] [place], [place], [address] PAPSMR Comment Normal . [facility] Comment on above: Order Comment: Speci men Comment: [id number] Specimen Comment: Source.............Cervix Specimen Comment: Other..............Post Menopausal [...] occur. Performed By: #### L 7400.0280 #### [facility] [address] [place], [place], [id number] PERFORM Comment Normal . [facility] Comment on above: Order Comment: Speci men Comment: [id number] Specimen Comment: Source.............Cervix Specimen Comment: Other..............Post Menopausal Specimen Comment: No. of containers..01 ThinPrep Vial Result Comment: Shelby Almazan, Core Carrier (ASCP) Performed By: #### L 7400.0280 #### [facility] [address] [place], [place], [address] SIGN Comment Normal . [facility] Comment on above: Order Comment: Speci men Comment: [id number] Specimen Comment: Source.............Cervix Specimen Comment: Other..............Post Menopausal Specimen Comment: No. of containers..01 ThinPrep Vial Result Comment: Radha Means MD, Pathologist Performed By: #### L 7400.0280 #### [facility] [address] [place], [address] Linux Kernel Engineer Office Visit Reporton 10-08-2023 Linux Kernel Engineer Office Visit Report 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 Normal [facility] Absolute lymphocyte countOrd ered By: Matthew Solorio on 06-08-2023 Lymphocytes Auto (Unsp spec) [#/Vol] 1.85 10*3/uL 0.83-4.51 [facility] Automated lymphocyte count a s percentage of total leukocytesOrdered By: Abbyantionetterebekahlayla Solorio on 06-08-2023 Lymphocytes/100 WBC Auto (Unsp spec) 23.4 % 19-41 [facility] Basophil percentageOrdered B y: Mikallayla Maciasmadalyncarol on 06-08-2023 Basophils/100 WBC (Bld) 0.5 % 0-1 [facility] Bilirubin [Mass/Vol] 0.60 mg/dL 0.20-1.00 [facility] Comment on above: For patients on eltr ombopag therapy, use of Dimension [place] TBIL is not recommended. Chloride [Moles/Vol] 107 mmol/L 98-107 [facility] Cholesterol [Mass/Vol] 221 mg/dL <200 [facility] Comment on above: <200 mg/dL Desirable 200-240 mg/dL Borderline >240 mg/dL High Risk Eosinophils/100 WBC (Bld) 4.7 % 0-5 [facility] Glucose [Mass/Vol] 106 mg/dL 74-106 [facility] Comment on above: Fasting Glucose resu lt from 100 to 125 mg/dL suggests IMPAIRED HOMEOSTASIS per A.D.A. criteria. Hemoglobin (Bld) [Mass/Vol] 14.4 g/dL 12.0-15.0 [facility] Monocytes/100 WBC (Bld) 7.1 % 0-10 [facility] Neutrophils (Bld) [#/Vol] 5.1 10*3/uL 2.0-7.7 [facility] Neutrophils/100 WBC (Bld) 64.0 % 47-70 [facility] Potassium [Moles/Vol] 4.4 mmol/L 3.5-5.1 [facility] Protein [Mass/Vol] 8.0 g/dL 6.4-8.2 [facility] Sodium [Moles/Vol] 139 mmol/L 136-145 [facility] Triglyceride [Mass/Vol] 91 mg/dL <199 [facility] Comment on above: The drugs N-Acetylcy steine and Metamizole may falsely depress this assay.Serum Triglycerides Reference Interval Normal <150 mg/dL Borderline high 150 - 199 mg/dL High 200 - 499 mg/dL Very High > or = 500 mg/dL WBC (Bld) [#/Vol] 7.9 10*3/uL 4.4-11.0 [facility] Determination of erythrocyte mean corpuscular volume (MCV)Ordered By: Matthew Solorio on 06-08-2023 MCV (RBC) [Entitic vol] 96.0 fL 81-99 [facility] Erythrocyte distribution wid th ratioOrdered By: [facility] Forsythlayla Maciascarol on 06-08-2023 Erythrocyte distribution width (RBC) [Ratio] 13.1 % 11.6-14.6 [facility] Erythrocyte distribution wid th standard deviationOrdered By: Javymonrovialayla Solorio on 06-08-2023 Erythrocyte distribution width (RBC) [Entitic vol] 46.7 fL 35.1-43.9 [facility] Hematocrit Auto (Bld) [Volum e fraction]Ordered By: Matthew Solorio on 06-08-2023 Hematocrit (Bld) [Volume fraction] 45.1 % 37-47 [facility] Immature granulocytes/100 WB C Auto (Bld)Ordered By: Matthew Solorio on 06-08-2023 Immature granulocytes/100 WBC (Bld) 0.300 % 0.0-0.9 [facility] Comment on above: IG% - Immature Granu locytes (promyelocytes, myelocytes and metamyelocytes) > 1% indicates that a LEFT SHIFT is Present. Laboratory - Chemistry and C hemistry - challengeOrdered By: Matthew Solorio on 06-08-2023 Albumin/Globulin [Mass ratio] 0.8 {ratio} 0.9-2.4 [facility] ALP [Catalytic activity/Vol] 125 U/L 45-117 [facility] ALT [Catalytic activity/Vol] 75 U/L 13-56 [facility] Cholesterol in HDL [Mass/Vol] 78 mg/dL >40 [facility] Comment on above: The drugs N-Acetylcy steine and Metamizole may falsely depress this assay. Reference Range HDL <40 mg/dL Low HDL Cholesterol HDL >or= 60 mg/dL High HDL Cholesterol Cholesterol in LDL [Mass/Vol] 125 mg/dL 0-130 [facility] CO2 [Moles/Vol] 28.0 mmol/L 21.0-32.0 [facility] Globulin (S) [Mass/Vol] 4.5 g/dL 2.2-4.2 [facility] Urea nitrogen/Creatinine [Mass ratio] 13.9 mg/mg 10-20 [facility] - Hematology and Cell countsOrdered By: Matthew Solorio on 06-08-2023 MCH (RBC) [Entitic mass] 30.6 pg 27.0-32.0 [facility] MCHC (RBC) [Mass/Vol] 31.9 g/dL 32-36 [facility] Nucleated RBC/100 WBC (Bld) [Ratio] 0 % 0-5 [facility] Platelet mean volume (Bld) [Entitic vol] 10.6 fL 6.2-12.0 [facility] Platelets (Bld) [#/Vol] 363 10*3/uL 150-450 [facility] No Panel InformationOrdered By: Matthew Solorio on 06-08-2023 Estimated GFR (MDRD) Amer 105 mL/min >60 [facility] Comment on above: GFR Calc Estimated GFR (MDRD) Non-Af Amer 87 mL/min >60 [facility] Comment on above: Non- GFR Calc VLDL Cholesterol 18 mg/dL 5-40 [facility] RBC Auto (Bld) [#/Vol]Ordere d By: Matthew Solorio on 06-08-2023 RBC (Bld) [#/Vol] 4.70 10*6/uL 4.2-5.4 [facility] Serum or plasma calcium samantha urement (mass/volume)Ordered By: Matthew Solorio on 06-08-2023 Calcium [Mass/Vol] 9.3 mg/dL 8.5-10.1 [facility] Serum or plasma creatinine m easurement (mass/volume)Ordered By: Matthew Solorio on 06-08-2023 Creatinine [Mass/Vol] 0.72 mg/dL 0.55-1.02 [facility] Comment on above: The validity of the calculated GFR & GFRAA in patients over 70 years has not been determined. Clinical correlation is essential. Serum or plasma urea nitroge n measurement (mass/volume)Ordered By: Javymonrovialayla Solorio on 06-08-2023 Urea nitrogen [Mass/Vol] 10 mg/dL 7-18 [facility] Thin prep Papanicolaou smear with manual screeningOrdered By: Matthew Solorio on 06-08-2023 Thin prep Papanicolaou smear with manual screening 3.5 g/dL 3.2-5.0 [facility] Thin prep Papanicolaou smear with manual screening 45 U/L 15-37 [facility] Thin prep Papanicolaou smear with manual screening 4 5-15 [facility] - Chemistry and C hemistry - challengeon 08-10-2022 Bilirubin Ql (U) Negative [facility] Glucose Ql (U) Negative [facility] Ketones Ql (U) Negative [facility] pH (U) 6.5 [pH] [facility] Specific gravity (U) [Rel density] 1.005 [facility] Urobilinogen (U) [Mass/Vol] 0.0999516 mg/dL [facility] - Hematology and Cell countson 08-10-2022 Hemoglobin Ql (U) Hemolyzed [facility] - Specimen inform ationon 08-10-2022 Clarity (U) Clear [facility] Color (U) FLORECITA [facility] - Urinalysison Nitrite Ql (U) Positive [facility] Protein Ql (U) Trace [facility] No Panel Informationon 08-10 Urine Leukocytes Positive [facility] Urine Non-Hemolyzed Blood Large [facility] Otheron 02-01-2010 CONVERTED CLINICAL HISTORY OPERATIVE PROCEDURE: Fractional D&C, video hysteroscopy CLINICAL INFORMATION: Post menopausal bleeding, cervical stenosis [facility] CONVERTED ELECTRONIC SIGNATURE BRENDA CASTRO M.D. (Electronic signature on file) Final Signed Out: 02/01/2010 16:[address] [facility] CONVERTED FINAL DIAGNOSIS FINAL DIAGNOSI S: A) ENDOMETRIAL CURETTINGS - SCANT PROLIFERATIVE ENDOMETRIUM WITH OBSCURING CRUSH ARTIFACT. SCANT UNREMARKABLE ENDOCERVICAL MUCOSA. COMMENT: No hyperplastic or neoplastic process is identified. The specimen is partially obscured by crush artifact, however. B) ENDOCERVICAL CURETTINGS - SCANT UNREMARKABLE ENDOCERVICAL MUCOSA EMBEDDED IN MUCUS. SPECIMEN: (A) ENDOMETRIAL CURETTINGS (B) ENDOCERVICAL CURETTINGS [facility] CONVERTED ORDERING PROVIDER Ordering Provider: JACINTO OBRIEN [facility] Vital Signs Date Time Vital Sign Value Performing Clinician Christina santana 09-11-2024 08:29-0400 Body height 160.[address] Matthew Solorio MD Work Phone: [facility] 09-11-2024 08:29-0400 Body mass index (BMI) [Ratio] 36.5 kg/m2 Dr. Matthew Solorio MD Work Phone: [facility] 09-11-2024 08:29-0400 Body weight 93.[address] Matthew Solorio MD Work Phone: [facility] 08-14-2024 09:36-0400 Body height 160.[address] Matthew Solorio MD Work Phone: [facility] 08-14-2024 09:36-0400 Body mass index (BMI) [Ratio] 36.8 kg/m2 Dr. Matthew Solorio MD Work Phone: [facility] 08-14-2024 09:36-0400 Body temperature 97.2 [degF] Dr. Matthew Solorio MD Work Phone: [facility] 08-14-2024 09:36-0400 Body weight 94.[address] Matthew Solorio MD Work Phone: [facility] 08-14-2024 09:36-0400 Diastolic blood pressure 84 mm[Hg] Dr. Matthew Solorio MD Work Phone: [facility] 08-14-2024 09:36-0400 Heart rate 68 /min Dr. Matthew Solorio MD Work Phone: [facility] 08-14-2024 09:36-0400 Respiratory rate 18 /min Dr. Matthew Solorio MD Work Phone: [facility] 08-14-2024 09:36-0400 SaO2% (BldA) [Mass fraction] 97 % Dr. Matthew Solorio MD Work Phone: [facility] 08-14-2024 09:36-0400 Systolic blood pressure 145 mm[Hg] Dr. Matthew Solorio MD Work Phone: [facility] 07-03-2024 14:38-0400 Body height 160.[address] Matthew Solorio MD Work Phone: [facility] 07-03-2024 14:38-0400 Body mass index (BMI) [Ratio] 37.3 kg/m2 Dr. Matthew Solorio MD Work Phone: [facility] 07-03-2024 14:38-0400 Body temperature 97.3 [degF] Dr. Matthew Solorio MD Work Phone: [facility] 07-03-2024 14:38-0400 Body weight 95.[address] Matthew Solorio MD Work Phone: [facility] 07-03-2024 14:38-0400 Diastolic blood pressure 80 mm[Hg] Dr. Matthew Solorio MD Work Phone: [facility] 07-03-2024 14:38-0400 Heart rate 68 /min Dr. Matthew Solorio MD Work Phone: [facility] 07-03-2024 14:38-0400 Respiratory rate 16 /min Dr. Matthew Solorio MD Work Phone: [facility] 07-03-2024 14:38-0400 SaO2% (BldA) [Mass fraction] 97 % Dr. Matthew Solorio MD Work Phone: [facility] 07-03-2024 14:38-0400 Systolic blood pressure 120 mm[Hg] Dr. Matthew Solorio MD Work Phone: [facility] 03-27-2024 09:46-0500 Body temperature 97.9 [degF] Dr. Matthew Solorio MD Work Phone: [facility] 03-27-2024 09:46-0500 Diastolic blood pressure 60 mm[Hg] Dr. Matthew Solorio MD Work Phone: [facility] 03-27-2024 09:46-0500 Heart rate 77 /min Dr. Matthew Solorio MD Work Phone: [facility] 03-27-2024 09:46-0500 Respiratory rate 16 /min Dr. Matthew Solorio MD Work Phone: [facility] 03-27-2024 09:46-0500 SaO2% (BldA) [Mass fraction] 98 % Dr. Matthew Solorio MD Work Phone: [facility] 03-27-2024 09:46-0500 Systolic blood pressure 124 mm[Hg] Dr. Matthew Solorio MD Work Phone: [facility] 06-08-2023 10:05-0400 Body height 160.02 cm [employer]illo De La Cruz NP Work Phone: [facility] 06-08-2023 10:05-0400 Body mass index (BMI) [Ratio] 36 kg/m2 [employer]Pillo De La Cruz [employer] Work Phone: [facility] 06-08-2023 10:05-0400 Body temperature 97.2 [degF] [employer] Radha De La Cruz [employer] Work Phone: [facility] 06-08-2023 10:05-0400 Body weight 92.24 kg [employer] Radha De La Cruz [employer] Work Phone: [facility] 06-08-2023 10:05-0400 Diastolic blood pressure 76 mm[Hg] [employer] Radha De La Cruz [employer] Work Phone: [facility] 06-08-2023 10:05-0400 Heart rate 71 /min [employer] Radha De La Cruz [employer] Work Phone: [facility] 06-08-2023 10:05-0400 Respiratory rate 16 /min [employer] Radha De La Cruz [employer] Work Phone: [facility] 06-08-2023 10:05-0400 SaO2% (BldA) [Mass fraction] 97 % [employer] Radha De La Cruz [employer] Work Phone: [facility] 06-08-2023 10:05-0400 Systolic blood pressure 122 mm[Hg] [employer] Radha De La Cruz [employer] Work Phone: [facility] 08-10-2022 11:29-0400 Body height 160.02 cm [employer] Radha De La Cruz [employer] Work Phone: [facility] 08-10-2022 11:29-0400 Body mass index (BMI) [Ratio] 35.6 kg/m2 [employer] Radha De La Cruz [employer] Work Phone: [facility] 08-10-2022 11:29-0400 Body temperature 97.3 [degF] [employer] Radha De La Cruz [employer] Work Phone: [facility] 08-10-2022 11:29-0400 Body weight 91.17 kg [employer] Radha De La Cruz [employer] Work Phone: [facility] 08-10-2022 11:29-0400 Diastolic blood pressure 70 mm[Hg] [employer] Radha Jono [employer] Work Phone: [facility] 08-10-2022 11:29-0400 Heart rate 74 /min [employer] Radha De La Cruz [employer] Work Phone: [facility] 08-10-2022 11:29-0400 Respiratory rate 16 /min [employer] Radha De La Cruz [employer] Work Phone: [facility] 08-10-2022 11:29-0400 SaO2% (BldA) [Mass fraction] 96 % [employer] Radha De La Cruz [employer] Work Phone: [facility] 08-10-2022 11:29-0400 Systolic blood pressure 110 mm[Hg] [employer] Radha Sellerssey [employer] Work Phone: [facility] 02-01-2010 16:02-0500 Body mass index (BMI) [Ratio] [facility] Encounter Date Encounter Type Care Provider Facility Start: 09-11-2024 End: 09-11-[address] Colton Hartman MD -[facility] Start: 09-11-2024 End: 09-11-[address] Matthew Solorio MD Work Phone: -[facility] Start: 08-14-2024 End: 08-14-2024 Patient encounter procedure Reanna Nielson [employer] -[facility] Work Phone: Start: 08-14-2024 End: 08-14-[address] Matthew Solorio MD Work Phone: [facility] Work Phone: Start: 08-14-2024 End: 08-14-2024 ambulatory Matthew Solorio Facility:[facility] Start: 07-22-2024 End: 07-22-[address] Matthew Solorio MD Work Phone: [facility] Work Phone: Start: 07-22-2024 End: 07-22-[address] Matthew Solorio MD -[facility]ound [facility] Work Phone: Start: 07-22-2024 End: 07-22-2024 ambulatory Matthew Bondse Facility:[facility] Start: 07-09-2024 Encounter for genera l adult medical examination without abnormal findings [facility] Start: 07-03-[address] Matthew Solorio MD Work Phone: [facility] Start: 07-03-2024 End: 07-03-[address] Matthew Solorio MD -[facility] Work Phone: Start: 07-03-2024 End: 07-03-[address] Matthew Solorio MD [facility] Start: 07-03-2024 End: 07-03-[address] Matthew Solorio MD Work Phone: [facility] Work Phone: Start: 07-03-2024 End: 07-03-2024 ambulatory Javymonrovialayla Solorio Facility:[facility] Start: 06-09-2024 ambulatory Matthew Solorio Facili ty:[facility] Start: 03-27-2024 End: 03-27-2024 Patient encounter procedure Yury WOODS -[facility] Work Phone: Start: 03-27-2024 End: 03-27-2024 ambulatory Efcatherine Bondse Facility:[facility] Start: 03-27-2024 End: 03-27-2024 ambulatory [facility] Facility:[facility] Start: 10-08-2023 Encounter for gynecological examination (general) (routine) without abnormal findings Kim Pemberton [facility] Start: 10-08-2023 End: 10-08-2023 ambulatory [facility] Facility:[facility] Start: 10-08-2023 End: 10-08-2023 ambulatory [facility] Facility:[facility] Start: 06-08-2023 End: 06-08-2023 ambulatory [employer] Radha De La Cruz [employer] Work Phone: [facility] Work Phone: Start: 06-08-2023 Patient encounter status [employer] Radha De La Cruz [employer] Work Phone: [facility] Start: 06-08-2023 End: 06-08-2023 Encounter for general adult medical examination without abnormal findings [employer] Radha De La Cruz [employer] Work Phone: [facility] Start: 06-08-2023 End: 06-08-2023 Patient encounter procedure [employer]-Franco De La Cruz [employer] Work Phone: [facility] Work Phone: Start: 08-10-2022 End: 08-10-2022 ambulatory [employer] Radha De La Cruz [employer] Work Phone: [facility] Work Phone: Start: 08-10-2022 End: 08-10-2022 Patient encounter procedure [employer] Radha De La Cruz [employer] Work Phone: [facility]-Laboratory, Specimen Start: 08-10-2022 End: 08-10-2022 Patient encounter procedure [employer]-Franco De La Cruz [employer] Work Phone: [facility] Start: 03-22-2022 Registered Referred [employer] Shi De La Cruz [employer] Work Phone: [facility] Start: 03-15-2022 Non-patient / Non-visit [employer] Ирина De La Cruz [employer] Work Phone: [facility] Start: 03-15-2022 End: 03-15-2022 ambulatory [employer] Radha De La Cruz [employer] Work Phone: [facility] Work Phone: Start: 03-15-2022 End: 03-15-2022 Patient encounter procedure [employer] Radha De La Cruz [employer] Work Phone: [facility] Start: 10-06-2021 End: 10-06-2021 ambulatory [facility] Work Phone: Start: 10-06-2021 End: 10-06-2021 Patient encounter procedure [facility] Start: 01-29-2010 End: 01-29-2010 Patient encounter procedure Jacinto Obrien Work Phone: [facility] Start: 01-29-2010 Results Only Jacinto Obrien Work Phone: [facility] Procedures Date Procedure Procedure Detail Performing Clinician Start: 08-14-2024 Hepatitis A virus an tibody, total measurement Dr. Matthew Solorio MD Work Phone: Comment on above: Comment: The HAV tot al antibody assay detects both IgG andIgM but does not differentiate between them. A negativeresult suggests susceptibility to infection. A positiveresult could be due to vaccination, previously resolvedinfection or active infection. Testing for HAV IgM shouldbe performed if active HAV infection is suspected. [facility]corpoffers profiles that will automatically reflex positive HAVtotal antibody results to IgM (e.g., panel #[id number] HAVAntibody w/ Rfx).Performed at: [address] [id number] Director: Crispin Goodman PhD, Phone: [phone] Start: 08-14-2024 Hepatitis C antibody measurement Dr. Matthew Solorio MD Work Phone: Comment on above: Reactive: Presumptiv e evidence of antibodies to HCV. Follow CDC recommendations for supplemental testing.Non-Reactive: Antibodies to HCV were not detected; does not exclude the possibility of exposure to HCVReactive Results are presumptive evidence of antibodies to HCV. Follow CDC recommendations for supplemental testing.Order confirmation testing: HCV Quant by PCR testing - HCVPCR #[id number] Non Reactive: < 0.8 Equivocal: >/= 0.8 to < 1.0 Reactive: >/= 1.0The CDC requires that a reactive/equivocal HCV antibody result be sent out for confirmation. HCV Quant by PCR testing. Start: 08-14-[address] Marcos Solorio MD Work Phone: Comment on above: Test Ordered: [id number] Enhanced Liver Fibrosis (ELF)ELF(TM) Score 9.42 BN Reference Range: <9.80ELF(TM) Score Interpretation:Risk cut-offs to assess the likelihood of progressionto cirrhosis and liver-related clinical events within3.9 years following baseline ELF score (IQR: 14.0-22.4months)*: Lower risk < 9.80 Mid risk 9.80 - 11.29 Higher risk >11.29Note: The ELF(TM) Score is a unitless numerical value.*Ran SA, Rufus VW, Marry T, et al. Selonsertibfor patients with bridging fibrosis or compensatedcirrhosis due to AYALA: Results from randomized phaseIII STELLAR trials. J Hepatol. 2020 Aug;73(1):26-39.Performed at: [facility] [id number] Director: Jaeysh Hu MD, Phone: [phone] at: [facility] [id number] Director: Crispin Goodman PhD, Phone: [phone] Start: 07-22-2024 Ultrasound elastogra phy of liver Dr. Matthew Solorio MD Work Phone: Start: 03-27-[address] Karthik Solorio MD Work Phone: Start: 10-06-2021 Screening mammography Start: 01-29-2010 CONVERTED SURGICAL PATHOLOGY Jacinto Obrien Work Phone: Bacteria identified in Urine by Culture [employer] De La Cruz NP Work Phone: Plan of Treatment Date Care Activity Detail Author Start: 09-11-2024 Plain x-ray of wrist Wrist min 3 Views [facility] Start: 09-11-2024 XR Wrist GE 3 Views [facility] Start: 08-14-2024 Procedure [facility] Start: 07-03-2024 CBC W Auto Differential panel - Blood [facility] Start: 07-03-2024 Comprehensive metabolic 1999 panel - Serum or Plasma [facility] Start: 07-03-2024 Lipid 1996 panel - Serum or Plasma [facility] Start: 06-08-2023 Patient referral [facility] Work Phone: Start: 10-21-2019 Influenza vaccination INFLUENZA (#1) [facility] Start: 06-01-2009 SHINGRIX VACCINE (1 of 2) SHINGRIX VACCINE (1 of 2) [facility] Start: 06-01-2009 Tuberculosis screening COLORECTAL CANCER SCREENING,SEE MODIFIER [facility] Start: 06-01-2004 DIABETES SCREEN DIABETES SCREEN [facility] Start: 06-01-2004 LIPID SCREEN LIPID SCREEN [facility] Start: [address] [facility] Start: 06-01-1989 HPV TESTING HPV TESTING [facility] Start: 06-01-1980 PAP TESTING PAP TESTING [facility] Start: 06-01-1978 Urine microalbumin profile DTAP,TDAP,TD (1 - Tdap) [facility] Start: 06-01-1977 HEPATITIS C SCREENING HEPATITIS C SCREENING [facility] Start: 06-01-1977 HIV SCREENING HIV SCREENING [facility] Alanine aminotransfe rase [Enzymatic activity/volume] in Serum or Plasma [facility] Albumin [Mass/volume ] in Serum or Plasma [facility] Alkaline phosphatase [Enzymatic activity/volume] in Serum or Plasma [facility] Anion gap in Serum or Plasma [facility] Bilirubin, total measurement [facility] BUN/Creatinine ratio [facility] Calcium [Mass/volume ] in Serum or Plasma [facility] Carbon dioxide, tota l [Moles/volume] in Central venous blood [facility] Cholesterol [Mass/vo lume] in Serum or Plasma [facility] Cholesterol in HDL [Mass/volume] in Serum or Plasma [facility] Creatinine [Mass/vol ume] in Serum or Plasma [facility] DXA Bone [Mass/Area] Bone density [facility] Erythrocyte mean cor puscular volume determination [facility] Glucose [Mass/volume ] in Serum or Plasma [facility] Hematocrit [Volume F raction] of Blood [facility] Hemoglobin [Mass/vol ume] in Blood [facility] Hepatic function panel [facility] Hepatitis A virus Ab [Presence] in Serum [facility] Hepatitis B virus co re Ab [Presence] in Serum [facility] Hepatitis B virus perez rface Ab [Presence] in Serum [facility] Hepatitis C antibody measurement [facility] Leukocytes [#/volume ] in Blood [facility] Low density lipoprot ein cholesterol measurement [facility] Mean corpuscular hem oglobin concentration determination [facility] Mean corpuscular hem oglobin determination [facility] Measurement of renal function [facility] MG Breast - bilatera l Screening [facility] Neutrophil count [facility] Neutrophil percent differential count [facility] Patient referral [facility] Work Phone: Platelets [#/volume] in Blood [facility] Potassium measurement [facility] Prothrombin time [facility] Red blood cell count [facility] Red cell distributio n width determination [facility] Serum chloride measurement [facility] Sodium measurement [facility] Total cholesterol:HD L ratio measurement [facility] Total protein measurement [facility] Triglycerides measurement [facility] Urea nitrogen [Mass/ volume] in Serum or Plasma [facility] VLDL cholesterol measurement [facility] Payers Date Payer Category Payer Medicare [id number] 2024 Unknown [id number] 2024 Private Health Insurance [id number] 2023 Self-pay [id number] 2023 Unknown [id number] 2004 Unknown ANTHEM BLUE CARD PPO [id number] 2004-Present PPO [id number] Private Health Insurance [facility] [id number] Unknown [id number] Unknown [id number] 62 Unknown [id number] 62 Unknown [id number] [id number] 62 Unknown [id number] 62 Unknown [id number] [id number] 62 Unknown [id number] [id number] 62 Unknown [id number] [id number] 62 Unknown [id number] 2.16.840.1.925765.3.579.2.4 62 Unknown [id number] 2.16.840.1.568530.3.579.2.4 62 Unknown [id number] 2.16.840.1.284153.3.579.2.4 62 Unknown [id number] [id number] 62 Unknown [id number] [id number] 62 Social History Date Type Detail Facility Start: 07-06-2005 End: 08-14-2024 Tobacco smoking status NHIS Never smoker [facility] Start: 07-06-2005 Alcohol intake Current drinke r of alcohol (finding) [facility] Sex Assigned At Not on file [facility] Start: 08-06-2020 End: 06-08-2023 Tobacco smoking status WYIS Unknown if ever smoked [facility] Start: 1960 Sex Assigned At Female [facility] Gender Identity Identifies as fe male gender (finding) [facility] Sexual Orientation Heterosexual (finding) [facility] Clinical Notes 03-27-2024 to 09-11-2024 Note Date & Type Note Facility 09-11-2024 Progress note [facility] 09-11-2024 Progress note Note Date/Time September 11, 2024 9:03am [facility] [address] [place] [address] OFFICE VISIT Date of Service: 09/11/24 MR#: [id number] Acct: [id number] Name: AMBER CASTILLO Rep # : [id number] : 1960 Provider: Dr. Fracisco Hylton MD Age/Sex: 64/F Location: [facility] Status: Signed Intake Vital Signs 08/14/24 09:36 09/11/24 08:29 Height 5 ft 3 in 5 ft 3 in Weight: 208 lb 3 oz 206 lb 4 oz BMI 36.8 36.5 BP 145/84 H Respiration 18 Pulse 68 Temp 97.2 F L Temp Source Temporal Pulse Oximetry (%) 97 Oxygen Delivery Method room air Intake Visit Reasons: LEFT WRIST Chief Complaint: Left wrist Accompanied by: Self Is patient in pain?: Yes Pain scale (1-10): 5 Allergies Penicillins Allergy (Unknown, Verified 09/11/24 08:33) unknown Medications ?Medication ?Instructions ?Recorded ?Confirmed ?Type cholecalciferol (vitamin D3) 50 50 mcg PO DAILY 09/11/24 History mcg (2,000 unit) capsule cranberry fruit 400 mg capsule 400 mg PO DAILY 4 09/11/24 History calcium amino acid chelate mg PO 07/03/24 09/11/24 His tory Have you fallen in the past year?: Yes [facility] Medical History (Updated 09/11/24 @ 08:40 by Leighton Hylton MD) De Quervain's tenosynovitis, left Left wrist pain Liver fibrosis Encounter for wellness examination Advance directive indicates [...] Heart disease Hypertension High cholesterol Social History adopted: No household members: spouse and children [...] social history: - [employer] HPI LEFT WRIST Details: This documentation accurately reflects the service provided and the decisions made by me, Dr. Leighton Hylton MD 09/11/24 0829. Part of today?s visit was documented by [ ], acting as scribe. AMBER CASTILLO is a 64 year old F here today for RHD fell 4 weeks ago dorsal wrist pain. retired. likes to read ans spend time wth the granddaughter. base of thumb pain worse with using the thumb. Ortho Exam General General: Yes no acute distress Neurologic: Yes alert and Yes oriented x3 Psychologic: Yes reasonable and appropriate Right Wrist/Hand Skin/Wound: No Swelling and No Ecchymosis Left Wrist/Hand Skin/Wound: Yes CDI, No Swelling, No Ecchymosis, Yes nail intact, Yes capillary refill normal and No erythema Left Wrist: Yes ROM-Extension 0-60, Yes ROM-Flexion 0-80, Yes ROM-Pronation 0-80, Yes ROM-Supination 0-90, Yes Snuffbox tenderness, Yes Sarah's Test and Yes tender to palpate 1st dorsal compartment; No Tender to palpate triangular fibrocartilage complex, No Distal radioulnar joint, No CMC Grind, No Thenar Atrophy and No Hypothenar Atrophy Motor: EPL: 5, FDP-2: 5, 1st Dorsal Interosseous: 5 and APB: 5 Sensation: Radial: I, Ulnar: I and Median: I Supplemental Info xr 3 view L wrist - nil acute Coding Level of Care Code Off vis,new,level 4 Diagnoses Left wrist pain M25.532 De Quervain's tenosynovitis, left M65.4 Assessment and Plan Assessment and Plan (1) Left wrist pain: Status: Acute Plan: 64-year-old female with left first dorsal compartment tenosynovitis. Patient wants to start with a thumb spica brace we prescribed that today as wellas oral anti-inflammatories and declined the injection for now we will follow-upas needed. De Quervain's tenosynovitis is a condition that causes pain and inflammation in the tendons on the thumb side of the wrist. Treatment options include: Non-Surgical Measures: Rest: Avoid activities that aggravate the pain. Splinting: Wear a thumb spica splint to immobilize the thumb and wrist. Activity modification: Change daily habits to reduce strain on the tendons, suchas using both hands for tasks that require gripping. Non-steroidal anti-inflammatory drugs (NSAIDs): Ibuprofen or naproxen can help reduce pain and inflammation. Corticosteroid injections: Injections of corticosteroids into the affected tendon sheath can provide temporary relief from pain and inflammation. Surgical Intervention: Surgery may be considered if non-surgical measures fail to relieve symptoms. The procedure involves releasing the narrowed tendon sheath to create more spacefor the tendons (2) De Quervain's tenosynovitis, left: Status: Acute Orders: Orders Wrist min 3 Views Today M25.532 - Pain in left wrist Clinical Quality Measures Falls Risk Screening/Assistive Devices Have you fallen in the past year?: Yes 09/11/24 0903 <Electronically signed by Leighton galarza MD> Date _ Leighton Hylton MD Cosigner Signature: Date (if applicable) CC: ~ [facility] Work Phone: 1(177) 705-360506-03-2025 Radiology Diagnostic study note [facility] Imaging Services [address] [id number] ABD Limited w/ Elastography MR#: [id number] Acct: [id number] Name: AMBER CASTILLO Rep #: [id number] : 1960 F 64 From: Devi Hawkins MD PCP: Dr. Matthew Solorio MD Status: R EG CLI Study:ABD Limited w/ Elastography Date of Exa m: 07/22/24 Exam# [id number] Ordering Dr: Carol Solorio MD PROCEDURE: ABD LIMITED W/ ELASTOGRAPHY REASON FOR EXAM: ELEVATED LIVER ENZYMES COMPARISON: None. TECHNIQUE: Right upper quadrant abdominal ultrasound along with shear wave elastography fornon-invasive assessment of liver tissue stiffness. FINDINGS: LIVER: SIZE: Unremarkable LENGTH: 18.4 cm sagittally. ECHOTEXTURE: Normal. CONTOUR: Normal LESIONS: None identified BLOOD FLOW: Hepatopetal. ELASTOGRAPHY: EQI Med: 8.1 kPa EQI Med Rik: 1.63 m/s GALLBLADDER: Surgically absent. COMMON BILE DUCT: 1.1 cm. . PANCREAS: Normal RIGHT KIDNEY: Size measures 11.1 x 5.4 x 4.5 cm. Cortex measures 1.5 cm. US/ABD Limited w/ Elastography IMPRESSION: 1. F 2 to F 3, moderate to severe clinical likelihood of significant hepatic fibrosis. 2. Status post cholecystectomy. Reference Values: SRU <1.37 m/s (5.7kPa): No to mild fibrosis 1.37 m/s - 2.2 m/s: Moderate to severe fibrosis >2.2 m/s (15kPa): Significant fibrosis / cirrhosis METAVIR Score F2 or higher: 1.34 m/s (5.7kPa) F3 or higher: 1.55 m/s (7.3kPa) F4: 1.80 m/s (10kPa) Reading Location: [place] [address] CC: Dr. Matthew Solorio MD ~ Cane Flume Chute Operator: Signed [facility]05-15-2025 Evaluation note* Diagnosis Onset Date Resolution Status Admit Date Advance directive indicates patient wish for full code resuscitation status acute July 03, 2 025 2:22pm Encounter for wellness examination a cute July 03, 2024 2:22pm Preventative health care acute July 03, 2024 2:22pm [facility] Work Phone: [phone] Evaluation note* Diagnosis Onset Date Resolution Status Admit Date Advance directive indicates patient wish for full code resuscitation status acute July 03, 2 025 2:22pm Encounter for wellness examination acute July 03, 2024 2 :22pm Preventative health care acute July 03, 2024 2:22pm ALD (alcoholic liver disease) acute August 14, 2024 9:25am Elevated liver enzymes acute [facility] 2024 9:25am Liver fibrosis acute August 14, 2024 9:25am [facility] Work Phone: 1(129) 996-109105-15-2025 Evaluation note* Diagnosis Onset Date Resolution Status Admit Date Advance directive indicates patient wish for full code resuscitation status acute July 03, 2 025 2:22pm Encounter for wellness examination acute July 03, 2024 2 :22pm Preventative health care acute July 03, 2024 2:22pm ALD (alcoholic liver disease) acute August 14, 2024 9:25am Elevated liver enzymes acute [facility] 2024 9:25am Liver fibrosis acute August 14, 2024 9:25am De Quervain's tenosynovitis, left ac [place] September 11, 2024 8:26am Left wrist pain acute August 8:26am [facility] Work Phone: 1(572) 139-125302-06-2025 Evaluation note* Diagnosis Onset Date Resolution Status Admit Date Urinary tract infection noneactive F ebruary 2024 9:43am [facility] Work Phone: 1(914) 211-812102-06-2025 Evaluation note* Diagnosis Onset Date Resolution Status Admit Date Urinary tract infection noneactive F ebruary 2024 9:43am Advance directive indicates patient wish for full code resuscitation status acute July 03, 2 025 2:22pm Encounter for wellness examination acute July 03, 2024 2 :22pm Preventative health care acute July 03, 2024 2:22pm [facility] Work Phone: Evaluation noteNo assessment information available [facility] Work Phone: Evaluation note* Diagnosis Onset Date Resolution Status Urinary tract infection none active [facility] Work Phone: Evaluation note* Diagnosis Onset Date Resolution Status Colon cancer screening acute Encounter to establish care acute Preventative health care acu te [facility] Work Phone: Reason for referral (narrative)No [facility] for [facility]: Chief Complaint and Reason for [...] Preventative health care July 03, 2024 2:22pm Chief Complaint Admit Date wellness July 03, 2024 2:22p m ELEVATED LIVER ENZYMES July 22, 2024 7: 16am Reason for Visit Admit Date Advance directive indicates patient wish for full code resuscitation status July 03, 2024 2:22pm Encounter for wellness examination June 192024 2:22pm Preventative health care July 03, 2024 2:22pm Chief Complaint Admit Date wellness July 03, 2024 2:22p m ELEVATED LIVER ENZYMES July 22, 2024 7: 16am Hepatic Fibrosis August 14, 2024 9:25 am Reason for Visit Admit Date Advance directive indicates patient wish for full code resuscitation status July 03, 2024 2:22pm Encounter for wellness examination June 192024 2:22pm Preventative health care July 03, 2024 2:22pm ALD (alcoholic liver disease) August 14, 2024 9:25am Elevated liver enzymes August 14, 2024 9 :25am Liver fibrosis August 14, 2024 9:25 am Chief Complaint Admit Date wellness July 03, 2024 2:22p m ELEVATED LIVER ENZYMES July 22, 2024 7: 16am Hepatic Fibrosis August 14, 2024 9:25 am LEFT WRIST September 11, 2024 8:26 am Room 1 September 11, 2024 8:40 am Reason for Visit Admit Date Advance directive indicates patient wish for full code resuscitation status July 03, 2024 2:22pm Encounter for wellness examination June 192024 2:22pm Preventative health care July 03, 2024 2:22pm ALD (alcoholic liver disease) August 14, 2024 9:25am Elevated liver enzymes August 14, 2024 9 :25am Liver fibrosis August 14, 2024 9:25 am De Quervain's tenosynovitis, left August 202024 8:26am Left wrist pain September 11, 2024 8:26 am Family History No Family History Records Found [...] or prosecute any alcohol or drug abuse patient.[facility] Goals (unrecognized section and content) Goals [...] Family Provider Active Radha De La Cruz [employer], [employer] Primary Care Provider Active Team Status: Active Member Role Status Dates Radha De La Cruz [employer], [employer] Primary Care Provider Active Dr. Andrew Trammell MD Attending Provider Active Team Status: Inactive Member Role Status Dates Radha De La Cruz [employer], [employer] Primary Care Provider, Attendin g Provider Active Team Status: Active Member Role Status Dates Radha De La Cruz [employer], [employer] Primary Care Provider Active Dr. Vasile Vital MD Attending Provider Active Self Referred Referring Provider Active Team Status: Inactive Member Role Status Dates Radha De La Cruz [employer], [employer] Primary Care Provider, Referrin g Provider Active Yury WOODS PA Attending Provider Active Team Status: Inactive Member Role Status Dates Radha De La Cruz [employer], [employer] Primary Care Provider Active Yury WOODS PA Attending Provider, Referring Provi yani Active Team Status: Active Member Role Status Dates Dr. Tabatha Billingsley MD Family Provider Active Dr. Matthew Solorio MD Primary Care Provider Active Team Status: Inactive Member Role Status Dates Radha De La Cruz [employer], [employer] Primary Care Provider, Referrin g Provider Active [...] Referring Provider Active Start: July 03, 2024 Team Status: Active Member Role Status Dates Dr. Matthew Solorio MD Primary Care Provider Active Team Status: Inactive Member Role Status Dates Dr. Matthew Solorio MD Primary Care Provider Active Start: July 22, 2024 End: July 22, 2024 Dr. Matthew Solorio MD Attending Provider Active Start: July 22, 2024 End: July 22, 2024 Dr. Matthew Solorio MD Referring Provider Active Start: July 22, 2024 End: July 22, 2024 Team Status: Inactive Member Role Status Dates Dr. Matthew Solorio MD Primary Care Provider Active Start: August 14, 2024 End: August 14, 2024 Dr. Matthew Solorio MD Referring Provider Active Start: August 14, 2024 End: August 14, 2024 JAZMIN Todd Attending Provider Active Start: August 14, 2024 End: August 14, 2024 Team Status: Active Member Role/Relationship Status Dates Dr. Matthew Solorio MD Primary Care Provider Active Team Status: Inactive Member Role/Relationship Status Dates Dr. Matthew Solorio MD Primary Care Provider Active Start: July 03, 2024 End: July 03, 2024 Dr. Matthew Solorio MD Attending Provider Active Start: July 03, 2024 End: July 03, 2024 Dr. Matthew Solorio MD Referring Provider Active Start: July 03, 2024 End: July 03, 2024 Team Status: Inactive Member Role/Relationship Status Dates Dr. Matthew Solorio MD Primary Care Provider Active Start: July 03, 2024 End: July 03, 2024 Dr. Matthew Solorio MD Attending Provider Active Start: July 03, 2024 End: July 03, 2024 Dr. Matthew Solorio MD Referring Provider Active Start: July 03, 2024 End: July 03, 2024 Team Status: Inactive Member Role/Relationship Status Dates Dr. Matthew Solorio MD Primary Care Provider Active Start: July 22, 2024 End: July 22, 2024 Dr. Matthew Solorio MD Attending Provider Active Start: July 22, 2024 End: July 22, 2024 Dr. Matthew Solorio MD Referring Provider Active Start: July 22, 2024 End: July 22, 2024 Team Status: Inactive Member Role/Relationship Status Dates Dr. Matthew Solorio MD Primary Care Provider Active Start: August 14, 2024 End: August 14, 2024 Dr. Matthew Solorio MD Referring Provider Active Start: August 14, 2024 End: August 14, 2024 JAZMIN Todd Attending Provider Active Start: August 14, 2024 End: August 14, 2024 Team Status: Inactive Member Role/Relationship Status Dates Dr. Matthew Solorio MD Primary Care Provider Active Start: August 14, 2024 End: August 14, 2024 JAZMIN Todd Attending Provider Active Start: August 14, 2024 End: August 14, 2024 JAZMIN Todd Referring Provider Active Start: August 14, 2024 End: August 14, 2024 Team Status: Active Member Role/Relationship Status Dates Dr. Matthew Solorio MD Primary Care Provider Active Start: September 11, 2024 Dr. Matthew Solorio MD Referring Provider Active Start: September 11, 2024 Leighton Hylton MD Attending Provider Active St art: September 11, 2024 Team Status: Inactive Member Role/Relationship Status Dates Dr. Matthew Solorio MD Primary Care Provider Active Start: September 11, 2024 End: September 11, 2024 Dr. Colton Hartman MD Attending Provider Active S tart: September 11, 2024 End: September 11, 2024 Team Status: Inactive Member Role/Relationship Status Dates Dr. Matthew Solorio MD Primary Care Provider Active Start: September 11, 2024 End: September 11, 2024 Dr. Matthew Solorio MD Referring Provider Active Start: September 11, 2024 End: September 11, 2024 Leighton Hylton MD Attending Provider Active St art: September 11, 2024 End: September 11, 2024 INFORMATION SOURCE (unrecogn ized section and content) DATE CREATED AUTHOR 09/14/2024 [facility] FOR RECORDS PERTAINING TO PATIENTS WHO ARE [...] BE BASED ON THE PRIMARY CLINICAL RECORDS. [facility] [employer] provides no warranty or guarantee of the accuracy or completeness of information in this document.
[2024-09-18 13:07] LABS: AST(SGOT) 32 U/L (<=31); Alanine Aminotransfer ALT/SGPT 37 U/L (<=34); Albumin, Serum 4.2 g/dL (3.4-4.8); Alkaline Phosphatase 121 U/L (35-104); Anion Gap 10 (5-15); BUN 9 mg/dL (4-19); BUN/Creat Ratio 10.8 RATIO (10-20); Bilirubin, Direct 0.18 mg/dL (0.00-0.30); Calcium,Total 9.5 mg/dL (7.6-11.0); Carbon Dioxide 24.1 mmol/L (21.0-32.0); Chloride 105 mmol/L (98-108); Ferritin 169 ng/mL (22-378); Globulin 3.1 g/dL (2.2-4.2); Glucose 118 mg/dL (70-99); Iron 83 ug/dL (50-170); Iron Binding Capacity,Total 292 ug/dL (250-450); Iron Binding Capacity,Unsat 209 ug/dL (228-428); Potassium 4.2 mmol/L (3.3-5.1)
[2024-09-19 15:08] LABS: ANTINUCLEAR ANTIBODIES DIRECT Negative (Negative)
[2024-09-20 11:08] LABS: Anti-Smooth Muscle ABS 42 Units (0-19); Cytoplasmic Ab (C-ANCA) <1:20 titer (Neg:<1:20); GGTP 28 IU/L (0-60); Immunoglobulin A 440 mg/dL (87-352); Perinuclear Ab (P-ANCA) <1:20 titer (Neg:<1:20)
== END | disposition home or self-care (01) ==
LOC: BIMLAB 09:41
PROVIDERS: PCP Internal Medicine; Referring Provider Nurse Practitioner Acute Care; Visit Provider Nurse Practitioner Acute Care
DX: K70.9 Alcoholic liver disease, unspecified (principal); K74.00 Hepatic fibrosis, unspecified; R74.8 Abnormal levels of other serum enzymes; R74.01 Elevation of levels of liver transaminase levels
CPT/HCPCS: 36415; 80048; 80076; 82728; 82784; 82977; 83516; 83540; 83550; 85025; 86037; 86038; 86225

== ENCOUNTER → 2024-12-16 | Outpatient (CLI) | payer MEDICARE, OTHER, SELFPAY ==
[2024-12-16 12:28] LABS: Prothrombin Time (Protime)PT. 13.7 SECONDS (11.7-14.9)
[2024-12-16 13:31] LABS: Cholesterol 188 mg/dL (<=200); Low Density Lipoprotein Calc. 112 mg/dL; Triglycerides 107 mg/dL; Very Low Density Lipoprotein 21 mg/dL (5-40); Vitamin D,25 Hydroxy 40.0 ng/mL (30-100); cholesterol:hdl ratio screen 3.29
[2024-12-17 13:08] LABS: Anti-Smooth Muscle ABS 45 Units (0-19)
[2024-12-17 14:09] LABS: ANTINUCLEAR ANTIBODIES DIRECT Negative (Negative)
== END | disposition home or self-care (01) ==
LOC: MTLAB 09:14
PROVIDERS: PCP Internal Medicine; Referring Provider Internal Medicine; Visit Provider Internal Medicine
DX: R73.03 Prediabetes (principal); K74.00 Hepatic fibrosis, unspecified; K70.9 Alcoholic liver disease, unspecified; E55.9 Vitamin D deficiency, unspecified; E78.5 Hyperlipidemia, unspecified
CPT/HCPCS: 36415; 80061; 82306; 83036; 83516; 85610; 86038; 86225

== ENCOUNTER → 2024-12-25 | Outpatient (CLI) | payer MEDICARE, OTHER, SELFPAY ==
[2024-12-25 15:22] LABS: AST(SGOT) 24 U/L (<=31); Alanine Aminotransfer ALT/SGPT 24 U/L (<=34); Albumin, Serum 4.0 g/dL (3.4-4.8); Alkaline Phosphatase 119 U/L (35-104); Bilirubin, Direct 0.12 mg/dL (0.00-0.30); Globulin 2.9 g/dL (2.2-4.2)
[2024-12-27 08:09] LABS: Alpha Antitrypsin Serum 128 mg/dL (101-187)
== END | disposition home or self-care (01) ==
PROVIDERS: PCP Internal Medicine; Referring Provider Internal Medicine; Visit Provider Internal Medicine
DX: K74.00 Hepatic fibrosis, unspecified (principal)
CPT/HCPCS: 36415; 80076; 82103